=== PATIENT | male | born 1965 | race Caucasian/White ===

== ENCOUNTER 2019-10-16 13:02 | Outpatient (CLI) | payer BC, MEDICARE, SELFPAY ==
--- NOTE | 2019-10-16 13:07 | ECG_ITS ---
Measurements Intervals [place] Rate: 82 P: 52 OR: 175 QRS: 41 QRSD: 88 T: 43 QT: 343 QTc: 401 Interpretive Statements SINUS RHYTHM BASELINE ARTIFACT- I, III, AVR, AVL, AVF NORMAL ECG Electronically Signed On 10-16-2019 13:58:56 DIRECTOR OF FINANCIAL REPORTING by Duglas Cabral D.O.
== END 2019-10-16 13:03 | disposition home or self-care (01) ==
PROVIDERS: PCP Family Medicine; Visit Provider Podiatrist Foot & Ankle Surgery
DX: Z01.810 Encounter for preprocedural cardiovascular examination (principal); E78.00 Pure hypercholesterolemia, unspecified
CPT/HCPCS: 93005

== ENCOUNTER 2021-01-13 11:25 | Outpatient (CLI) | payer MEDICARE, BC, SELFPAY | END 2021-01-13 11:26 | disposition home or self-care (01) | LOC: ANHCOVIDVC 11:25 | PROVIDERS: PCP Family Medicine | DX: Z23 Encounter for immunization (principal) | CPT/HCPCS: 0001A; 91300 ==

== ENCOUNTER 2021-02-03 11:19 | Outpatient (CLI) | payer BC, MEDICARE, SELFPAY | END 2021-02-03 11:20 | disposition home or self-care (01) | LOC: ANHCOVIDVC 11:20 | PROVIDERS: PCP Family Medicine | DX: Z23 Encounter for immunization (principal) | CPT/HCPCS: 0002A; 91300 ==

== ENCOUNTER 2021-04-19 07:04 | Emergency (ER) | payer BC, MEDICARE, SELFPAY ==
[2021-04-19] VITALS (13 sets, daily range): BP systolic 104–151; BP diastolic 39–96; PULSE 86–103; RESP 12–24; TEMP 36.7; O2SAT 97–100
--- NOTE | ~2021-04-19 | XR_ITS ---
EXAMINATION: XR chest 2V DATE: 04/19/2021 07:30 INDICATION: Right-sided chest pain TECHNIQUE: PA and lateral views of the chest are obtained. COMPARISON: None available FINDINGS: Airspace opacities are present in the right upper lobe. There is no pleural effusion or pne umothorax. The cardiomediastinal silhouette is normal. There is mild thoracic spondylosis. IMPRESSION: 1. Right upper lobe airspace opacity which could reflect pneumonia. Recommend followup radiographs in 10-14 days after appropriate therapy to evaluate for improvement/resolution as malignancy could have a similar appearance. Reviewed, dictated and finalized at location A. IMPRESSION: 1. Right upper lobe airspace opacity which could reflect pneumonia. Recommend f ollowup radiographs in 10-14 days after appropriate therapy to evaluate for imp rovement/resolution as malignancy could have a similar appearance.
--- NOTE | 2021-04-19 07:21 | ED.SOB ---
HPI - SOB/Dyspnea General Chief Complaint: Shortness of Breath/Dyspnea Stated Complaint: feels like I collapsed my lung Time Seen by Provider: 04/19/21 07:10 History of Present Illness HPI Narrative: 56 yo male w/ h/o htn, BPD presents to the ED for CP and SOB. He reports that he has had a few days of pain in the right upper chest. Sharp. Worse with breathing. He has also had mild dyspnea with exertion. He reports that he was seen here in the past with similar symptoms and told that he had a RUL collapse. I cannot find any records of this, although there is an outside x-ray report with RUL opacities. No trauma, fever. He is a daily smoker. Related Data Home Medications Medication Instructions Recorded Confirmed buspirone 10 mg PO BID 10/04/19 10/26/19 melatonin 6 mg PO HS 10/04/19 10/26/19 trazodone 50 mg PO HS 10/04/19 10/26/19 venlafaxine 75 mg PO QAM 10/04/19 10/26/19 buprenorphine [Butrans] 1 patch TRANSDERMAL Q7D 10/12/19 10/26/19 quetiapine 400 mg PO HS 10/12/19 10/26/19 Allergies Allergy/AdvReac Type Severity Reaction Status Date / Time PROPOXYPHENE NAPSYLATE Allergy Seizure Uncoded 04/19/21 07:37 STEROIDS AdvReac Irritable, Uncoded 04/19/21 07:37 SEVERE DEPRESSION Review of Systems Review of Systems: All systems reviewed & are unremarkable except as noted in HPI and below Constitutional: Constitutional: Denies chills and Denies fever(s) ENT: Denies dizziness and Denies sore throat Cardiovascular: Cardiovascular: Reports chest pain Respiratory: Respiratory: Reports cough, Reports dyspnea and Denies wheezing Gastrointestinal: Gastrointestinal: Denies abdominal pain, Denies nausea and Denies vomiting Musculoskeletal: Musculoskeletal: Denies back pain Neurologic: Denies confusion, Denies dizziness and Denies weakness PMF Past Medical History Medical History Bipolar disorder Chronic back pain Depression Diabetes Hypercholesterolemia Patulous eustachian tube, bilateral Spinal stenosis Surgical History Surgical History No history of previous surgery Family History Family History Mother Family history of migraine headaches Hypertension Family history of osteoarthritis Family history of cardiovascular disease Father Family history of alcoholism Family history of diabetes mellitus in first degree relative Diabetes mellitus Grandparent Family history of lung cancer Other Family history of malignant neoplasm Family history of mental disorder Social History Social History Smoking status: Heavy tobacco smoker Second hand tobacco smoke exposure: Yes Alcohol intake: never Substance use type: marijuana Gender identity (if verbalized by the patient): Male Exam Const: General: healthy appearing, no acute distress and alert Orientation/consciousness: patient oriented x3 HENMT: Head: normal to inspection Neck: Neck: normal visual inspection and no lymphadenopathy Chest: Chest palpation & inspection: no tenderness Resp: Effort & Inspection: normal respiratory effort Auscultation: clear to auscultation bilaterally, no rales, no rhonchi and no wheezes Cardio: Jugular venous distension: no JVD Rate: regular rate Rhythm: regular rhythm Heart sounds: no murmurs GI: Inspection: non-distended GI Palp: Yes Soft to palpation and No Tenderness to palpation present (GI) Skin: General skin exam: normal color Neuro: General: patient oriented x3 and moves all extremities Speech: normal speech Extrem: General: no edema Psych: Appearance: well kempt Affect: normal affect Course Vital Signs Vital signs: Vital Signs Temperature 36.7 C 04/19/21 07:08 Pulse Rate 103 H 04/19/21 07:08 Respiratory Rate 13 04/19/21 07:08 Blood
--- NOTE | 2021-04-19 07:22 | ECG_ITS ---
Measurements Intervals [place] Rate: 99 P: 49 CA: 141 QRS: 23 QRSD: 94 T: 71 QT: 337 QTc: 434 Interpretive Statements SINUS RHYTHM DELAYED PRECORDIAL R/S TRANSITION BORDERLINE ST-T WAVE ABNORMALITY- INF/LAT LEADS BASELINE ARTIFACT- I, II, III, AVR, AVL, AVF, V3-V6 BORDERLINE ECG Electronically Signed On 04-19-2021 7:28:50 CDT by Duglas Cabral D.O.
[2021-04-19 07:33] LABS: Basophils Percent Auto 0.4 % (0.2-1.2); Eosinophils Absolute Auto 0.1 K/mm3 (0-0.3); Eosinophils Percent Auto 1.3 % (0-4.4); Hematocrit 37.1 % (42.0-52.0); Hemoglobin 12.3 g/dL (14.0-18.0); Immature Granulocyte Absolute 0.05 K/mm3 (0.00-0.031); Immature Granulocyte Percent A 0.5 % (0-0.5); Lymphocytes Absolute Auto 0.61 K/mm3 (0.9-3.2); Lymphocytes Percent Auto 5.7 % (18.3-44.2); Mean Corpuscular HGB Conc 33.2 g/dl (32-36); Mean Corpuscular Volume 93.5 fl (80-100); Mean Platelet Volume 9.9 fl (7.4-10.4); Monocytes Absolute Auto 0.9 K/mm3 (0.1-0.6); Monocytes Percent Auto 8.6 % (2.6-8.5); Neutrophils Absolute Auto 8.9 K/mm3 (1.3-6.7); Neutrophils Percent Auto 83.5 % (45.5-73.1); Platelet Count Result 257 k/mm3 (150-375); Red Blood Count 3.97 M/mm3 (4.6-6.20); Red Cell Distribution Width 13.9 % (11.5-14.5); White Blood Count 10.6 K/mm3 (4.5-10.0)
[2021-04-19 07:42] LABS: Anion Gap 7 mmol/L (8-16); Blood Urea Nitrogen 14 mg/dL (9-20); Calcium 9.2 mg/dL (8.4-10.2); Carbon Dioxide 26 mmol/L (22-30); Chloride 106 mmol/L (98-107); Estimated CRCL calculation 73 ml/min; Estimated Glomerular Filt Rate > 60; Glucose 192 mg/dL (65-110); Potassium 3.4 mmol/L (3.4-5.0); Sodium 139 mmol/L (137-145)
[2021-04-19 07:55] LABS: Troponin I 0.014 ng/mL (0.000-0.034)
[2021-04-19 08:16] LABS: Prothrombin Time 13.2 Seconds (11.1-14.7)
[2021-04-19 08:17] LABS: Partial Thromboplastin Time 36.2 SECONDS (22.3-36.8)
[2021-04-19] MEDS: ALBUTEROL SULFATE NEB 2.5 MG/0.5 ML INH 5 MG INHALATION (10:09)
[2021-04-19] MEDS: AZITHROMYCIN 250 MG TABLET 500 MG PO (10:30)
[2021-04-19] MEDS: AMOXICILLIN/CLAVULANATE K 875-125 MG TAB 1 TABLET PO (10:30)
[2021-04-19 10:40] LABS: Troponin I 0.016 ng/mL (0.000-0.034)
== END 2021-04-19 10:53 | disposition home or self-care (01) ==
PROVIDERS: Emergency Provider Emergency Medicine
DX: J18.9 Pneumonia, unspecified organism (principal); I10 Essential (primary) hypertension; E11.9 Type 2 diabetes mellitus without complications; E78.00 Pure hypercholesterolemia, unspecified; F31.9 Bipolar disorder, unspecified; R94.31 Abnormal electrocardiogram [ECG] [EKG]; F17.200 Nicotine dependence, unspecified, uncomplicated
CPT/HCPCS: 36415; 71046; 80048; 84484; 85025; 85610; 85730; 93005; 94640; 99284; A9270

== ENCOUNTER 2021-05-09 10:03 | Emergency (ER) | payer BC, MEDICARE, SELFPAY ==
--- NOTE | ~2021-05-09 | XR_ITS ---
XR chest 2V 05/09/2021 10:30 Indication: Cough, shortness of breath and chest pain Procedure: 2 view chest Comparison: 04/19/2021 Findings: Progression of right upper lobe pneumonia prior examination. Heart size normal. Left lung c lear. No significant effusion or pneumothorax. Impression: 1: Interval progression of right upper lobe pneumonia. Reviewed, dictated and finalized at location A. Impression: 1: Interval progression of right upper lobe pneumonia.
[2021-05-09 10:14] VITALS: BP 105/60; PULSE 94; RESP 16; TEMP 36.6; O2SAT 99
--- NOTE | 2021-05-09 10:15 | ED.GENADULT ---
HPI - General Adult General Chief complaint: Upper Respiratory Infection Stated complaint: cough/chest hurts Time Seen by Provider: 05/09/21 10:15 Source: patient and RN notes reviewed Mode of arrival: ambulatory Limitations: no limitations History of Present Illness HPI narrative: 56-year-old male presents with complaints of intermittent shortness of breath, cough, and right upper chest discomfort for the past 22 days. Arnaldo reports increasing cough, intermittent chills, and RT upper chest discomfort. Started Azithromycin and Augmentin 04/19/21 without relief, repeated CXR without further treatment per Arnaldo. History of smoking 2 PPD for years. Constant dry cough/intermittent productive cough (green-brown phlegm). Rhinorrhea and nasal congestion. ?Denies sore throat. ?No high fevers, drooling, neck or throat swelling. ?No chest pain or wheezing. ?Denies nausea, vomiting, and abdominal pain. ?Tolerating liquids well. ?Remains active. The patient reports he has not been diagnosed with COVID-19. The patient reports he received 2 [employer] COVID-19 vaccines. The patient reports he is not waiting for the results of a COVID-19 lab test. The patient reports he does not have weakness, fatigue, or myalgia. The patient reports he does not have any loss of taste or smell and diarrhea. Denies recent traveling. Denies concerns for COVID-19 or exposures. At this time, the patient is not suspected of having COVID-19. Some parts of this dictation were generated by voice recognition software and may contain typographical and/or grammatical inaccuracies. Related Data Home Medications Medication Instructions Recorded Confirmed buspirone 10 mg PO TID 10/04/19 05/10/21 melatonin 20 mg PO 10/04/19 05/10/21 trazodone 50 mg PO 10/04/19 05/10/21 venlafaxine 150 mg PO QAM 10/04/19 05/10/21 quetiapine 400 mg PO 10/12/19 05/10/21 diazepam 10 mg PO Q12H PRN 05/10/21 05/10/21 fenofibrate 145 mg PO DAILY 05/10/21 05/10/21 gabapentin 300 mg PO TID 05/10/21 05/10/21 hydrocodone-acetaminophen 1 tablet PO Q8H PRN 05/10/21 05/10/21 naproxen 500 mg PO BID PRN 05/10/21 05/10/21 Allergies Allergy/AdvReac Type Severity Reaction Status Date / Time PROPOXYPHENE NAPSYLATE Allergy Seizure Uncoded 05/10/21 14:35 STEROIDS AdvReac Irritable, Uncoded 05/10/21 14:35 SEVERE DEPRESSION Review of Systems Review of Systems: CONSTITUTIONAL: Denies fever, sweats, fatigue. Complaints of intermittent chills. EYES: Denies visual changes, redness, discharge. ENT: Complains of rhinorrhea, congestion. Denies sore throat, otalgia. CARDIOVASCULAR: Denies chest pain, palpitations, edema. Complains of right upper chest wall pain. RESPIRATORY: Denies wheezing. Complains of constant dry cough, intermittent productive cough, dyspnea. GASTROINTESTINAL: Denies abdominal pain, nausea, vomiting, diarrhea. GENITOURINARY: Denies dysuria, hematuria, abnormal discharge. SKIN: Denies rash or itching. MUSCULOSKELETAL: Denies acute back pain, joint pain, or myalgia. NEUROLOGIC: Denies numbness or focal weakness. PSYCHIATRIC: Denies anxiety or depression. All other systems reviewed are negative, except as documented in HPI and below. [facility] Past Medical History Medical History Anxiety Bipolar disorder Chronic back pain Depression Hypercholesterolemia Kidney stones Posttraumatic stress disorder Spinal stenosis Tobacco dependence Surgical History Surgical History History of myringotomy History of toe surgery Family History Family History Mother Family history of migraine headaches Hypertension Family history of osteoarthritis Family history of cardiovascular disease Father Family history of alcoholism Family history of diabetes mellitus in first degree relative Diabetes mellitus
== END 2021-05-09 10:55 | disposition home or self-care (01) ==
PROVIDERS: Emergency Provider Nurse Practitioner Family
DX: J18.9 Pneumonia, unspecified organism (principal); F17.210 Nicotine dependence, cigarettes, uncomplicated; F41.9 Anxiety disorder, unspecified; F31.9 Bipolar disorder, unspecified; E78.00 Pure hypercholesterolemia, unspecified; M48.00 Spinal stenosis, site unspecified
CPT/HCPCS: 71046; 99213; G0463

== ENCOUNTER 2021-05-10 08:28 | Inpatient (IN) | payer BC, MEDICARE, SELFPAY ==
[2021-05-10] VITALS (13 sets, daily range): BP systolic 60–126; BP diastolic 51–86; PULSE 79–110; RESP 16–20; TEMP 36.1–37.6; O2SAT 96–100; BMI 28.9
--- NOTE | ~2021-05-10 | XR_ITS ---
XR chest 2V 05/10/2021 09:01 Indication: Cough. Pneumonia. Procedure: 2 view chest Comparison: Comparison to multiple prior studies sequentially, with oldest reviewed study dated 04/19. Findings: Interval progression of right upper lobe pneumonia. Heart size normal. No pleural effusion or pneumothorax. No acute osseous abnormality. Impression: 1: Progression of right upper lobe pneumonia. Reviewed, dictated and finalized at location A. Impression: 1: Progression of right upper lobe pneumonia.
--- NOTE | ~2021-05-10 | XR_ITS ---
EXAMINATION: XR barium swallow modified DATE: 05/11/2021 08:54 INDICATION: Dysphagia. TECHNIQUE: The patient was given barium-containing material of multiple consistencies to swallow by andre jimenez speech pathologist while I performed fluoroscopy. Dose-area product was 0.91 Gy-cm2. 1.2 minutes fluoroscopy time FINDINGS: Oral Stage: Normal Pharyngeal Phase: Normal Cervical/Esophageal Stage: Normal IMPRESSION: Modified esophagram findings as above. Please [facility]. Reviewed, dictated and finalized at Location A. Reviewed, dictated and finalized at location A. IMPRESSION: Modified esophagram findings as above. Please refer to the speech t herapy report for specific recommendations.
--- NOTE | ~2021-05-10 | CT_ITS ---
EXAMINATION: CT diagnostic chest wo con DATE: 05/11/2021 09:00 INDICATION: Unresolving pneumonia TECHNIQUE: Computed tomography (CT) of the chest was performed without intravenous contrast. The dose -length product (DLP) was 393.39 mGy-cm. Automated exposure control and iterative reconstruction tech nique were employed. COMPARISON: None FINDINGS: There is a masslike opacity of the right upper lobe with areas of cavitation which crosses the major fissure to involve the superior segment of the right lower lobe. Peripheral airspace opacit ies are present throughout the right upper lobe. The right middle lobe and remainder of the right low er lobe are clear. There are subtle groundglass opacities of the left upper lobe. There is mild media stinal lymphadenopathy. The heart size is normal. There is no pleural effusion or pneumothorax. Contr ast from modified barium swallow partially opacifies the stomach and duodenum. There is moderate thor acic spondylosis. IMPRESSION: 1. Findings consistent with cavitary pneumonia of the right upper lobe also involving the superior se gment of the right lower lobe. Patchy groundglass opacities of the left upper lobe are also likely in fectious. Reviewed, dictated and finalized at location B. IMPRESSION: 1. Findings consistent with cavitary pneumonia of the right upper lobe also inv olving the superior segment of the right lower lobe. Patchy groundglass opaciti es of the left upper lobe are also likely infectious.
[2021-05-10] MEDS: SODIUM CHLORIDE 0.9% IV 1,000 ML 999 ML IV CONT ×2 (09:03→09:40)
[2021-05-10 09:15] LABS: Basophils Percent Auto 0.3 % (0.2-1.2); Eosinophils Absolute Auto 0.2 K/mm3 (0-0.3); Eosinophils Percent Auto 1.3 % (0-4.4); Hematocrit 31.3 % (42.0-52.0); Immature Granulocyte Absolute 0.09 K/mm3 (0.00-0.031); Immature Granulocyte Percent A 0.6 % (0-0.5); Lymphocytes Absolute Auto 0.68 K/mm3 (0.9-3.2); Lymphocytes Percent Auto 4.3 % (18.3-44.2); Mean Corpuscular HGB Conc 31.9 g/dl (32-36); Mean Corpuscular Hemoglobin 29.9 pg (26-34); Mean Corpuscular Volume 93.4 fl (80-100); Mean Platelet Volume 10.3 fl (7.4-10.4); Monocytes Absolute Auto 1.2 K/mm3 (0.1-0.6); Monocytes Percent Auto 7.4 % (2.6-8.5); Neutrophils Absolute Auto 13.6 K/mm3 (1.3-6.7); Neutrophils Percent Auto 86.1 % (45.5-73.1); Platelet Count Result 326 k/mm3 (150-375); Red Blood Count 3.35 M/mm3 (4.6-6.20); White Blood Count 15.8 K/mm3 (4.5-10.0)
[2021-05-10 09:17] LABS: Ammonia < 9 umol/L (9-30)
[2021-05-10 09:18] LABS: Anion Gap 7 mmol/L (8-16); Blood Urea Nitrogen 19 mg/dL (9-20); Carbon Dioxide 28 mmol/L (22-30); Chloride 99 mmol/L (98-107); Estimated CRCL calculation 61 ml/min; Estimated Glomerular Filt Rate > 60; Glucose 195 mg/dL (65-110); Potassium 3.2 mmol/L (3.4-5.0); Sodium 134 mmol/L (137-145)
[2021-05-10 09:23] LABS: Alanine Aminotransferase 18 U/L (4-50); Albumin Level 3.5 g/dL (3.5-5.1); Alkaline Phosphatase 155 U/L (38-126); Aspartate Amino Transferase 18 U/L (17-59); Bilirubin,Total 0.6 mg/dL (0.2-1.3)
[2021-05-10 09:28] LABS: Add Urine Microscopic? YES; Appearance Urine Clear (Clear); Bacteria Urine Trace /hpf; Bilirubin Urine 1+ (Negative); Blood Urine Negative (Negative); Calcium Oxalate Crystals Urine Present /hpf; Color Urine Amber (Yellow); Glucose Urine UA Negative (Negative); Ketones Urine Negative (Negative); Leukocyte Esterase Ur Negative LEU/UL (Negative); Mucus Urine Heavy /lpf; Nitrate Urine Negative (Negative); Protein Urine 1+ mg/dL (Negative); Specific Grav Ur 1.027 (1.001-1.035); Squamous Epithelial Cell Urine Rare /hpf (Few)
[2021-05-10 10:04] LABS: Lactic Acid Reflex 0.9 mmol/L (0.7-2.1)
--- NOTE | 2021-05-10 11:27 | ED.GENADULT ---
HPI - General Adult General Chief complaint: Weakness Stated complaint: slight confusion, numbness hands Time Seen by Provider: 05/10/21 08:37 History of Present Illness HPI narrative: Patient is a 56-year-old male who presents ER with increased weakness. Reports over the last few weeks he is been increasingly weak and fatigued. He has persistent shortness of breath. Recently diagnosed last month with pneumonia and was treated outpatient. He is unsure that was fully treated. He reports he has had about a 12 pound weight loss. Patient does have history of heavy smoking. Patient also reports occasional tingling in his hands. Patient reports he feels like he is lightheaded or confused but is oriented x3 and has brisk recall. Denies sinus congestion or sore throat or productive cough. Patient denies any foreign travel or incarceration that put him at risk for TB. No hemoptysis. Related Data Home Medications Medication Instructions Recorded Confirmed buspirone 10 mg PO TID 10/04/19 05/10/21 melatonin 20 mg PO HS 10/04/19 05/10/21 trazodone 50 mg PO HS 10/04/19 05/10/21 venlafaxine 150 mg PO QAM 10/04/19 05/10/21 quetiapine 400 mg PO HS 10/12/19 05/10/21 diazepam 10 mg PO Q12H PRN 05/10/21 05/10/21 fenofibrate 145 mg PO DAILY 05/10/21 05/10/21 gabapentin 300 mg PO TID 05/10/21 05/10/21 hydrocodone-acetaminophen 1 tablet PO Q8H PRN 05/10/21 05/10/21 naproxen 500 mg PO BID PRN 05/10/21 05/10/21 Allergies Allergy/AdvReac Type Severity Reaction Status Date / Time PROPOXYPHENE NAPSYLATE Allergy Seizure Uncoded 05/10/21 14:35 STEROIDS AdvReac Irritable, Uncoded 05/10/21 14:35 SEVERE DEPRESSION Review of Systems Review of Systems: All systems reviewed & are unremarkable except as noted in HPI and below Constitutional: Constitutional: Denies chills, Reports fatigue, Denies fever(s) and Reports weakness ENT: Denies nasal congestion and Denies sore throat Cardiovascular: Cardiovascular: Denies chest pain, Denies rapid heart rate and Denies radiating jaw, neck or arm pain Respiratory: Respiratory: Denies cough, Reports dyspnea and Denies wheezing Gastrointestinal: Gastrointestinal: Denies abdominal pain, Denies nausea and Denies vomiting Neurologic: Denies headache(s) and Denies focal weakness Comments: Tingling in fingers PMFSH Past Medical History Medical History Bipolar disorder Chronic back pain Depression Diabetes Hypercholesterolemia Patulous eustachian tube, bilateral Spinal stenosis Surgical History Surgical History No history of previous surgery Family History Family History Mother Family history of migraine headaches Hypertension Family history of osteoarthritis Family history of cardiovascular disease Father Family history of alcoholism Family history of diabetes mellitus in first degree relative Diabetes mellitus Grandparent Family history of lung cancer Other Family history of malignant neoplasm Family history of mental disorder Social History Social History (Updated 05/09/21 @ 10:25 by KRISTI Long) Smoking packs per day: 2 Smoking cigarettes per day: 40.0 Years smoked: 36 Smoking pack-years: 72.00 Smoking status: Current every day smoker Tobacco type: cigarettes Second hand tobacco smoke exposure: Yes Alcohol intake: never Alcohol use details: rarely Substance use: current Substance use type: marijuana Other substance usage details: uses daily Last use: 05/08/2021 Additional occupation/education comments: disable Gender identity (if verbalized by the patient): Male Spiritual care concerns: No Exam Narrative: GENERAL: Fatigued-appearing, well-nourished, and in no acute distress. HEAD: Normocephalic, atraumatic. EYES: PERRL and EOMI. CHEST:
--- NOTE | 2021-05-10 14:23 | ADMGEN ---
This patient, Arnaldo Morton, was admitted to Medical Room 343-01. Patient/family oriented to hospital policies and general routines including ID bracelet, bed and alarms, visiting hours, pain management, procedures, bathroom and other care routines, personal items, smoking policy, room service/diet, and visiting hours. Information on how to activate the Rapid Response Team has been discussed. Patient/Family are encouraged to report perceived risks to care and to ask questions if they do not understand what they are told or what they should do.
[2021-05-10] MEDS: HYDROcodone/acetaminophen (*CRX) 5-325 MG TABLET 1 TAB PO (20:32)
--- NOTE | 2021-05-10 22:00 | PM.IMHP ---
H&P: HPI History of Present Illness Date/Time: 05/10/21 22:00 Chief Complaint: Weakness and lightheadedness. Narrative: This is a 56-year-old male smoker who presented to the emergency department earlier this morning with complaints of weakness and lightheadedness. Last month he was diagnosed with right upper lobe pneumonia for which he was given azithromycin and another prescription for Augmentin more recently although it does not sound as though he completed the full course of antibiotics prescribed to him. He has continued to have symptoms including cough which is rarely productive of yellow-green phlegm, poor appetite, and generalized malaise. Due to ongoing symptoms he was seen at urgent care yesterday where a chest x-ray showed worsening right upper lobe pneumonia for which he was prescribed Levaquin however he did not go pick that up yesterday or this morning. In the emergency department today his blood pressures were a bit soft and with further questioning it sounds like his appetite has not been that great and he feels a bit dehydrated. He has had perhaps mild nausea but no vomiting. He also endorses occasional dysphagia over the last couple of weeks, mainly with solid foods though he denies concerns for aspiration. Since receiving IV fluids he feels quite a bit better. He completed the [employer] COVID-19 vaccination series several months ago and denies exposure and sick contacts. He does not think he has had fevers but he does have sweats quite frequently. No headaches, chest pain, pleuritic pain, vomiting, or diarrhea. He has no history of malignancy but does report a 12 to 14 lb weight loss in the last couple of weeks. Review of Systems Review of Systems: Twelve systems were reviewed with pertinent positives and negatives as per HPI. Except as documented, all other systems were reviewed and are negative. [facility] Past Medical History Medical History (Updated 05/11/21 @ 00:47 by Janell Araya PA-C) Anxiety Bipolar disorder Chronic back pain Depression Hypercholesterolemia Kidney stones Posttraumatic stress disorder Spinal stenosis Tobacco dependence Surgical History Surgical History (Updated 05/11/21 @ 00:44 by Janell Araya PA-C) History of myringotomy History of toe surgery Family History Family History Mother Family history of migraine headaches Hypertension Family history of osteoarthritis Family history of cardiovascular disease Father Family history of alcoholism Family history of diabetes mellitus in first degree relative Diabetes mellitus Grandparent Family history of lung cancer Other Family history of malignant neoplasm Family history of mental disorder Social History Social History (Updated 05/11/21 @ 00:45 by Janell Araya PA-C) Social History: Surrogate decision maker: Roxanne Morton, spouse. Code status: Full code. Smoking packs per day: 2 Smoking cigarettes per day: 40.0 Years smoked: 36 Smoking pack-years: 72.00 Smoking status: Current every day smoker Tobacco type: cigarettes Second hand tobacco smoke exposure: Yes Alcohol intake: never Alcohol use details: Rare alcohol use. Substance use: current Substance use type: marijuana Other substance usage details: uses daily Last use: 05/08/2021 Additional occupation/education comments: Disabled. Meds Home Medications and Allergies Home Medications Medication Instructions Recorded Confirmed Type buspirone 10 mg PO TID 10/04/19 05/10/21 History melatonin 20 mg PO HS 10/04/19 05/10/21 History trazodone 50 mg PO HS 10/04/19 05/10/21 History venlafaxine 150 mg PO QAM 10/04/19 05/10/21 History quetiapine 400 mg PO HS 10/12/19 05/10/21 History tizanidine 4 mg capsule See Rx Instructions .ROUTE 05/26/20 05/10/21 Rx .COMPLEX #270 cap albuterol sulfate 2 puff INHALATION QID PRN #8.5 g 04/19/21 05/10/21 Rx benzonatate 100 mg
[2021-05-11] VITALS (8 sets, daily range): BP systolic 108–142; BP diastolic 58–79; PULSE 86–108; RESP 16–18; TEMP 36.2–36.6; O2SAT 97–100
[2021-05-11 00:43] LABS: Anion Gap 8 mmol/L (8-16); Blood Urea Nitrogen 13 mg/dL (9-20); Carbon Dioxide 24 mmol/L (22-30); Chloride 109 mmol/L (98-107); Estimated CRCL calculation 73 ml/min; Estimated Glomerular Filt Rate > 60; Glucose 113 mg/dL (65-110); Potassium 4.2 mmol/L (3.4-5.0); Sodium 141 mmol/L (137-145)
[2021-05-11 00:45] LABS: Hemoglobin A1C 5.9 % (<5.7)
[2021-05-11 01:13] LABS: Iron 12 ug/dL (49-181)
[2021-05-11 01:20] LABS: CRP 32.1 mg/dL (<1.0)
[2021-05-11 01:22] LABS: Percent Iron Saturation 7 % (20-50)
[2021-05-11 01:31] LABS: Procalcitonin 0.3 ng/mL
[2021-05-11 01:45] LABS: Thyroid Stimulating Hormone Reflex 0.172 uIU/mL (0.465-4.68)
[2021-05-11 01:52] LABS: Folic Acid 2.4 ng/mL (2.76->20)
[2021-05-11 04:44] LABS: Free T4 Free Thyroxine Reflex 0.96 ng/dL (0.78-2.19)
[2021-05-11 05:25] LABS: Total Triiodothyronine (T3) 0.88 NG/ML (0.97-1.69)
[2021-05-11] MEDS: HYDROcodone/acetaminophen (*CRX) 10-325 MG TABLET 1 TAB PO ×2 (05:29→17:42)
[2021-05-11 06:48] LABS: Hematocrit 31.9 % (42.0-52.0); Mean Corpuscular HGB Conc 31.3 g/dl (32-36); Mean Corpuscular Hemoglobin 29.2 pg (26-34); Mean Corpuscular Volume 93.3 fl (80-100); Mean Platelet Volume 10.1 fl (7.4-10.4); Platelet Count Result 362 k/mm3 (150-375); Red Blood Count 3.42 M/mm3 (4.6-6.20); Red Cell Distribution Width 14.3 % (11.5-14.5); White Blood Count 14.5 K/mm3 (4.5-10.0)
[2021-05-11 06:58] LABS: Anion Gap 8 mmol/L (8-16); Blood Urea Nitrogen 12 mg/dL (9-20); Calcium 8.5 mg/dL (8.4-10.2); Carbon Dioxide 23 mmol/L (22-30); Chloride 103 mmol/L (98-107); Estimated CRCL calculation 90 ml/min; Estimated Glomerular Filt Rate > 60; Glucose 112 mg/dL (65-110); Potassium 3.7 mmol/L (3.4-5.0); Sodium 134 mmol/L (137-145)
[2021-05-11] MEDS: busPIRone HCL 5 MG TABLET 10 MG PO ×3 (09:21→19:13)
[2021-05-11] MEDS: TIZANIDINE HCL 4 MG TABLET BY MOUTH ×2 (09:21→12:59)
[2021-05-11] MEDS: GABAPENTIN 300 MG CAPSULE PO ×3 (09:21→17:42)
[2021-05-11] MEDS: FENOFIBRATE NANOCRYSTALLIZED 145 MG TABLET PO (09:21)
[2021-05-11] MEDS: ENOXAPARIN 40 MG/0.4 ML SYRINGE SUB-Q (09:21)
[2021-05-11] MEDS: BENZONATATE 100 MG CAPSULE PO ×3 (09:21→19:13)
[2021-05-11] MEDS: VENLAFAXINE HCL 75 MG TABLET 150 MG PO (09:21)
[2021-05-11] MEDS: diazePAM (*CRX) 5 MG TABLET 10 MG PO (12:58)
--- NOTE | 2021-05-11 16:26 | PM.IMPN ---
Progress Note: A&P Assessment and Plan (1) Right upper lobe pneumonia: Code(s): J18.9 - Pneumonia, unspecified organism Status: Acute Assessment and Plan: 05/11/21 16:26 Despite 2 rounds of antibiotics, although unsure is not been completely compliant with those, he continues to have right upper lobe pneumonia which appears worse on imaging today. Given his smoking history I think it would be prudent to obtain a chest CT to rule out postobstructive pneumonia. Given dysphagia last couple of weeks I suppose aspiration is a concern although the patient denies such. Swallow study ordered for a.m. Continue azithromycin and ceftriaxone pending sputum culture. Check urinary antigens. Cornet and Mucinex ordered to help mobilize secretions. 05/11 patient states currently better compared to when he arrived CT scan of the chest showed Findings consistent with cavitary pneumonia of the right upper lobe also involving the superior segment of the right lower lobe. Patchy groundglass opacities of the left upper lobe are also likely infectious. patient is being treated with ceftriaxone and azithromycin, will switch over to Levaquin and vancomycin to provide broad coverage, will continue to monitor (2) Hypotension: Code(s): I95.9 - Hypotension, unspecified Status: Acute Assessment and Plan: will continue home regimen and monitor (3) Dehydration: Code(s): E86.0 - Dehydration Status: Acute Assessment and Plan: patient being gently hydrated (4) Hyperglycemia: Code(s): R73.9 - Hyperglycemia, unspecified Status: Acute (5) Hypokalemia: Code(s): E87.6 - Hypokalemia Status: Acute Assessment and Plan: will monitor and supplement (6) Tobacco dependence: Code(s): F17.200 - Nicotine dependence, unspecified, uncomplicated Status: Acute Assessment and Plan: discussed with the patient to stop smoking, patient is not ready to stop smoking at present time Subjective Date/time seen: 05/11/21 16:26 Despite 2 rounds of antibiotics, although unsure is not been completely compliant with those, he continues to have right upper lobe pneumonia which appears worse on imaging today. Given his smoking history I think it would be prudent to obtain a chest CT to rule out postobstructive pneumonia. Given dysphagia last couple of weeks I suppose aspiration is a concern although the patient denies such. Swallow study ordered for a.m. Continue azithromycin and ceftriaxone pending sputum culture. Check urinary antigens. Cornet and Mucinex ordered to help mobilize secretions. 05/11 patient states currently better compared to when he arrived CT scan of the chest showed Findings consistent with cavitary pneumonia of the right upper lobe also involving the superior segment of the right lower lobe. Patchy groundglass opacities of the left upper lobe are also likely infectious. patient is being treated with ceftriaxone and azithromycin, will switch over to Levaquin and vancomycin to provide broad coverage, will continue to monitor Review of Systems Review of Systems: All systems reviewed & are unremarkable except as noted in HPI and below Exam Narrative: Patient is comfortable, NAD HEENT: eyes are clear and none icteric LUNGS: bilateral fair air entry with rhonchi and wheezing HEART: RR S1S2 ABD: not distended Lower extremities: no edema SKIN: nonjaundiced Neuro: grossly intact normal speech. Objective Data Vital Signs Vital Signs: Vital Signs - 24 hr 05/10/21 19:55 05/11/21 05:25 05/11/21 14:00 Temperature 99.7 F H 97.5 F L 97.9 F Pulse Rate 109 H 98 86 Respiratory Rate 18 16 18 Blood Pressure 126/60 142/76 H 108/58 L Pulse Oximetry 96 97 100 Intake/Output Intake/Output: Intake & Output 05/08/21 05/09/21 05/10/21 05/11/21 23:59 23:59 23:59 23:59 Intake Total 2540 1330 Output Total 300 Balance 2540 1030 Meds/Results Medications
[2021-05-11] MEDS: ALBUTEROL SULFATE (*SP) AEROSOL 1 PUFF 2 PUFF INHALATION (19:52)
[2021-05-11] MEDS: MELATONIN 5 MG TABLET 20 MG PO (20:49)
[2021-05-11] MEDS: traZODone HCL 50 MG TABLET PO (20:50)
[2021-05-11] MEDS: QUEtiapine FUMARATE 100 MG TABLET 400 MG PO (20:50)
[2021-05-12] VITALS (7 sets, daily range): BP systolic 98–130; BP diastolic 60–82; PULSE 90–100; RESP 16–20; TEMP 36.3–36.4; O2SAT 96–98
--- NOTE | 2021-05-12 08:01 | PM.IMPN ---
Progress Note: A&P Assessment and Plan (1) Right upper lobe pneumonia: Code(s): J18.9 - Pneumonia, unspecified organism Status: Acute Assessment and Plan: 05/11/21 16:26 Despite 2 rounds of antibiotics, although unsure is not been completely compliant with those, he continues to have right upper lobe pneumonia which appears worse on imaging today. Given his smoking history I think it would be prudent to obtain a chest CT to rule out postobstructive pneumonia. Given dysphagia last couple of weeks I suppose aspiration is a concern although the patient denies such. Swallow study ordered for a.m. Continue azithromycin and ceftriaxone pending sputum culture. Check urinary antigens. Cornet and Mucinex ordered to help mobilize secretions. 05/11 patient states currently better compared to when he arrived CT scan of the chest showed Findings consistent with cavitary pneumonia of the right upper lobe also involving the superior segment of the right lower lobe. Patchy groundglass opacities of the left upper lobe are also likely infectious. patient is being treated with ceftriaxone and azithromycin, will switch over to Levaquin and vancomycin to provide broad coverage, will continue to monitor 05/12 right upper lobe cavitary pneumonia likely infectious however has 72 pack-year smoking history. History exposure to tuberculosis. History of lung collapse 2 years back on right upper lobe. Mycoplasma/Legionella/pneumococcal testing pending. On vancomycin ceftriaxone and azithromycin. Not covering Pseudomonas however will await since he is feeling better. Will get MRSA screen. AFB culture and fungal culture. Will get QuantiFERON. Sputum for cytology. Sputum culture is pending. Benefit from bronchoscopy evaluation. Will consult Pulmonary. May need Infectious Disease (2) Hypotension: Code(s): I95.9 - Hypotension, unspecified Status: Acute Assessment and Plan: will continue home regimen and monitor (3) Dehydration: Code(s): E86.0 - Dehydration Status: Acute Assessment and Plan: patient being gently hydrated (4) Hyperglycemia: Code(s): R73.9 - Hyperglycemia, unspecified Status: Acute (5) Hypokalemia: Code(s): E87.6 - Hypokalemia Status: Acute Assessment and Plan: will monitor and supplement (6) Tobacco dependence: Code(s): F17.200 - Nicotine dependence, unspecified, uncomplicated Status: Acute Assessment and Plan: discussed with the patient to stop smoking, patient is not ready to stop smoking at present time Subjective Date/time seen: 05/12/21 08:01 Interval history: Feeling a whole lot better. Cough is persistent. No hemoptysis. History of exposure to TB in the remote past. History of right upper lobe collapse lung 2 years back was admitted at [facility]. Reports feeling hot and cold with chills at times. Appetite is low. Has lost weight since past few weeks about 8-10 lb since this course. Review of Systems Review of Systems: All systems reviewed & are unremarkable except as noted in HPI and below Exam Narrative: Patient is comfortable, NAD HEENT: eyes are clear and none icteric LUNGS: bilateral fair air entry, no added sound heard HEART: RR S1S2 ABD: not distended Lower extremities: no edema no cyanosis or clubbing SKIN: nonjaundiced no rash Neuro: grossly intact normal speech. Objective Data Vital Signs Vital Signs: Vital Signs - 24 hr 05/11/21 08:02 05/11/21 08:04 05/11/21 14:00 Temperature 97.9 F Pulse Rate 106 H 108 H 86 Respiratory Rate 18 Blood Pressure 139/66 126/72 108/58 L Pulse Oximetry 100 05/11/21 20:07 05/11/21 20:10 05/11/21 20:12 Temperature 97.2 F L Pulse Rate 92 Respiratory Rate 18 Blood Pressure 116/72 123/79 112/68 Pulse Oximetry 97 05/12/21 05:28 Temperature 97.6 F Pulse Rate 100 Respiratory Rate 20 Blood Pressure 122/73 Pulse Oximetry 96
[2021-05-12] MEDS: ENOXAPARIN 40 MG/0.4 ML SYRINGE SUB-Q (10:12)
[2021-05-12] MEDS: GABAPENTIN 300 MG CAPSULE PO ×3 (10:15→17:00)
[2021-05-12] MEDS: BENZONATATE 100 MG CAPSULE PO ×3 (10:15→17:00)
[2021-05-12] MEDS: FENOFIBRATE NANOCRYSTALLIZED 145 MG TABLET PO (10:15)
[2021-05-12] MEDS: busPIRone HCL 5 MG TABLET 10 MG PO ×3 (10:15→17:00)
[2021-05-12] MEDS: VENLAFAXINE HCL 75 MG TABLET 150 MG PO (10:15)
[2021-05-12] MEDS: diazePAM (*CRX) 5 MG TABLET 10 MG PO (16:23)
--- NOTE | 2021-05-12 20:14 | PM.CNPUL ---
Assessment and Plan Assessment and plan (1) Right upper lobe pneumonia: Onset Date: ~04/2021 Code(s): J18.9 - Pneumonia, unspecified organism Status: Acute Assessment and Plan: He has a non resolving infiltrate initially noted April 19, progressive despite outpatient antibiotics, azithromycin, Augmentin. He continues to have symptoms with intermittent fever, chills, purulent sputum, fatigue and poor appetite with anemia; Ceftriaxone was stopped, and he is now on Vancomycin and doxycycline. Vanco provides coverage for Gram (+) anaerobes but not Gram negative anaerobes, may benefit from anaerobic coverage. He has urine antigens pending for pneumococcus, Legionella, Mycoplasma as well as serum testing for QuantiFERON Gold. If he does not improve, bronchoscopy is an option. He does not appear to have a mass obstructing his airway, so probably not a post-obstructive pneumonia. He had a MBS to r/o aspiration; results are normal. Will add Cornet valve to help get sufficient sputum for a Gram stain; probably will not grow anything with antibiotics. May have COPD. Testing after discharge. Agree with bronchodilator and will add additional therapy prior to discharge. (2) Tobacco dependence: Code(s): F17.200 - Nicotine dependence, unspecified, uncomplicated Status: Acute Assessment and Plan: Heavy smoker, tobacco and marijuana. Did not talk about tobacco cessation at this time, will need support to stay off tobacco. He is not going to stop marijuana which he uses for chronic pain. I told him that edible marijuana is preferable to smoking or vaping. Inhaling the substances is worse for his lung health. History of Present Illness History of Present Illness Consult date: 05/12/21 Requesting physician: Clive Jeter MD Reason for consult: pneumonia Chief complaint: pneumonia Narrative: NEW: Arnaldo Morton is a 56 year old man with right upper lobe pneumonia diagnosed April 19 with foul tasting sputum, cough with intermittent fevers and chills. He said that it felt the same as it did when he had pneumonia 1.5 to 2 years ago, treated as an out-patient. He presented to an emergency department and was treated with azithromycin and Augmentin. His symptoms improved but did not completely resolve. He continues to have a cough with scant amounts of yellow green sputum, fatigue, intermittent fever alternating with chills, and decreased appetite. He was admitted here on May 10 with persistent symptoms. He was at an urgent care on May 09 with worsening right upper lobe pneumonia. He has poor dentition, multiple missing teeth upper and lower, with mild difficulty swallowing. He has not had hemoptysis. He has chest pain in the right anterior chest with coughing, says that it feels like an alien is coming out of his chest. He had borderline low blood pressure on presentation May 10, sodium ws ow 14, WBC elevated 15.8 with a left shift, tachycardic heart rate 109, improved with IV fluids, He had [employer] COVID vaccine series a few months ago, has never had a Pneumovax. His last flu vaccination was a couple of years ago. He has not had leg swelling. He has chronic sinus problems. He does not use any regular medication for his sinus congestion. He smokes tobacco daily 2 ppd, and also vapes, smokes and eats marijuana for chronic pain. He Had a back injury in 2003 and became disabled. 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 He recently was started on an inhaler, albuterol by his primary care, Dr. Artem Dudley in [place]. Review of Systems Review of Systems: All systems reviewed & are unremarkable except as noted in HPI and below (HPI) Constitutional: Constitutional: Reports chills ENT: Reports nasal congestion Cardiovascular: Cardiovascular: D
[2021-05-12] MEDS: QUEtiapine FUMARATE 100 MG TABLET 400 MG PO (21:19)
[2021-05-12] MEDS: traZODone HCL 50 MG TABLET PO (21:20)
[2021-05-12] MEDS: MELATONIN 5 MG TABLET 20 MG PO (21:20)
[2021-05-13] VITALS (9 sets, daily range): BP systolic 98–123; BP diastolic 57–77; PULSE 82–94; RESP 18; TEMP 36.1–37.1; O2SAT 94–98
[2021-05-13 06:02] LABS: Hematocrit 30.3 % (42.0-52.0); Hemoglobin 10.1 g/dL (14.0-18.0); Mean Corpuscular HGB Conc 33.3 g/dl (32-36); Mean Corpuscular Hemoglobin 29.9 pg (26-34); Mean Corpuscular Volume 89.6 fl (80-100); Mean Platelet Volume 9.9 fl (7.4-10.4); Platelet Count Result 349 k/mm3 (150-375); Red Blood Count 3.38 M/mm3 (4.6-6.20); White Blood Count 9.8 K/mm3 (4.5-10.0)
[2021-05-13 06:13] LABS: Anion Gap 9 mmol/L (8-16); Blood Urea Nitrogen 12 mg/dL (9-20); Carbon Dioxide 25 mmol/L (22-30); Chloride 103 mmol/L (98-107); Estimated CRCL calculation 80 ml/min; Estimated Glomerular Filt Rate > 60; Glucose 116 mg/dL (65-110); Potassium 3.5 mmol/L (3.4-5.0); Sodium 137 mmol/L (137-145)
[2021-05-13] MEDS: HYDROcodone/acetaminophen (*CRX) 10-325 MG TABLET 1 TAB PO ×2 (06:25→15:33)
[2021-05-13 07:46] LABS: Vancomycin Trough 8.6 ug/mL (10.0-20.0)
--- NOTE | 2021-05-13 08:25 | PM.IMPN ---
Progress Note: A&P Assessment and Plan (1) Right upper lobe pneumonia: Onset Date: ~04/2021 Code(s): J18.9 - Pneumonia, unspecified organism Status: Acute Assessment and Plan: 05/11/21 16:26 Despite 2 rounds of antibiotics, although unsure is not been completely compliant with those, he continues to have right upper lobe pneumonia which appears worse on imaging today. Given his smoking history I think it would be prudent to obtain a chest CT to rule out postobstructive pneumonia. Given dysphagia last couple of weeks I suppose aspiration is a concern although the patient denies such. Swallow study ordered for a.m. Continue azithromycin and ceftriaxone pending sputum culture. Check urinary antigens. Cornet and Mucinex ordered to help mobilize secretions. 05/11 patient states currently better compared to when he arrived CT scan of the chest showed Findings consistent with cavitary pneumonia of the right upper lobe also involving the superior segment of the right lower lobe. Patchy groundglass opacities of the left upper lobe are also likely infectious. patient is being treated with ceftriaxone and azithromycin, will switch over to Levaquin and vancomycin to provide broad coverage, will continue to monitor 05/12 right upper lobe cavitary pneumonia likely infectious however has 72 pack-year smoking history. History exposure to tuberculosis. History of lung collapse 2 years back on right upper lobe. Mycoplasma/Legionella/pneumococcal testing pending. On vancomycin ceftriaxone and azithromycin. Not covering Pseudomonas however will await since he is feeling better. Will get MRSA screen. AFB culture and fungal culture. Will get QuantiFERON. Sputum for cytology. Sputum culture is pending. Benefit from bronchoscopy evaluation. Will consult Pulmonary. May need Infectious Disease 05/13/21 seen by Pulmonolgy may need to amplify abx?. Possible bronch if no improvement, however WBCs now normalized and pt reports feeling better. He would like to be discharged home. Patient is advised that we will follow Pulmonary recommendations for discharge antibiotics possibly doxy and cefdinir or other antibiotic is a considered to be appropriate. Additionally to clarify patient did not fail outpatient treatment with Augmentin he actually did not go to the pharmacy and pick it up and therefore never started taking it. (2) Hypotension: Code(s): I95.9 - Hypotension, unspecified Status: Acute Assessment and Plan: will continue home regimen and monitor (3) Dehydration: Code(s): E86.0 - Dehydration Status: Acute Assessment and Plan: Tolerating p.o. IV fluids (4) Hyperglycemia: Code(s): R73.9 - Hyperglycemia, unspecified Status: Acute (5) Hypokalemia: Code(s): E87.6 - Hypokalemia Status: Acute Assessment and Plan: will monitor and supplement (6) Tobacco dependence: Code(s): F17.200 - Nicotine dependence, unspecified, uncomplicated Status: Acute Assessment and Plan: discussed with the patient to stop smoking, patient is not ready to stop smoking at present time additional 10 minutes of smoking cessation counseling provided on 05/13/2020 Subjective Date/time seen: 05/13/21 08:25 Patient doing okay would like to go home he states he is feeling a lot better. He is advised that he is currently on vancomycin and pulmonology has been consulted. He would benefit from staying in the hospital until final recommendations can be given for his discharge antibiotics. Patient is in agreement. Additionally patient was counseled for 10 minutes on need for smoking cessation. 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 He is advised that is daily use of tobacco is much more significant and detrimental to his health Exam Narrative: Patient is comfortable, NAD HEENT: eyes are clear and none
[2021-05-13] MEDS: busPIRone HCL 5 MG TABLET 10 MG PO ×3 (08:52→17:10)
[2021-05-13] MEDS: GABAPENTIN 300 MG CAPSULE PO ×3 (08:52→17:10)
[2021-05-13] MEDS: FENOFIBRATE NANOCRYSTALLIZED 145 MG TABLET PO (08:52)
[2021-05-13] MEDS: BENZONATATE 100 MG CAPSULE PO ×3 (08:52→17:10)
[2021-05-13] MEDS: VENLAFAXINE HCL 75 MG TABLET 150 MG PO (08:52)
[2021-05-13] MEDS: ENOXAPARIN 40 MG/0.4 ML SYRINGE SUB-Q (08:53)
--- NOTE | 2021-05-13 14:00 | PM.PNPUL ---
Progress Note: A&P Assessment and Plan (1) Right upper lobe pneumonia: Onset Date: ~04/2021 Code(s): J18.9 - Pneumonia, unspecified organism Status: Acute Assessment and Plan: He has a non resolving infiltrate initially noted April 19, progressive despite outpatient antibiotics, azithromycin, Augmentin. He continues to have symptoms with intermittent fever, chills, purulent sputum, fatigue and poor appetite with anemia; Ceftriaxone was stopped, and he is now on Vancomycin and doxycycline. Vanco provides coverage for Gram (+) anaerobes but not Gram negative anaerobes, may benefit from anaerobic coverage. He has urine antigens pending for pneumococcus, Legionella, Mycoplasma as well as serum testing for QuantiFERON Gold. If he does not improve, bronchoscopy is an option. He does not appear to have a mass obstructing his airway, so probably not a post-obstructive pneumonia. He had a MBS to r/o aspiration; results are normal. Will add Cornet valve to help get sufficient sputum for a Gram stain; probably will not grow anything with antibiotics. OK TO GO HOME on Augmentin; he never took it as an out patient. May have COPD. Testing after discharge. Agree with bronchodilator and will add additional therapy prior to discharge. f/u -4 weeks in our office. (2) Tobacco dependence: Code(s): F17.200 - Nicotine dependence, unspecified, uncomplicated Status: Acute Assessment and Plan: Heavy smoker, tobacco and marijuana. Did not talk about tobacco cessation at this time, will need support to stay off tobacco. He is not going to stop marijuana which he uses for chronic pain. I told him that edible marijuana is preferable to smoking or vaping. Inhaling the substances is worse for his lung health. Subjective Date/time seen: 05/13/21 14:00 56 yo man here with Renetta; feels better, ready to go home. Has large nonresolving RUL pneumonia; talked with him and Renetta, has to stop smoking; images of chest CT seen, Augmentin will be given for 6 straight and he can come to out office in 3-[address] 2- months. Home O2 = no O2 needed. Review of Systems Review of Systems: All systems reviewed & are unremarkable except as noted in HPI and below (HPI) Constitutional: Constitutional: Reports chills ENT: Reports nasal congestion Cardiovascular: Cardiovascular: Denies pedal edema, Denies leg edema and Reports dyspnea Respiratory: Respiratory: Reports dyspnea Gastrointestinal: Gastrointestinal: Reports nausea Psychiatric: Psychiatric: Reports depression Exam Narrative: GEN: pleasant 56 year old man wearing regular clothes, lying prone on his bed, head at the foot of his bed; not in distress HEENT: pupils are equal and reactive at 5 mm, extraocular movements are intact, no frontal or maxillary tenderness, moist oral membranes, Mallampati II, no erythema or exudate, several missing teeth upper and lower jaws NECK: supple without palpable lymphadenopathy CHEST: equal air entry, equal expansion, decreased breath sounds consistent with hyperinflation; no dullness to percussion; no crackles; mild gynecomastia CV: regular S1-S2 without a murmur or gallop ABD : + bowel sounds Extremities : no clubbing cyanosis or edema PSYCH: normal speech, mood; did not test gait. Objective Data Vital Signs Vital Signs: Vital Signs - 24 hr 05/12/21 14:28 05/12/21 19:55 05/12/21 19:59 Temperature 36.3 C L 36.4 C Pulse Rate 90 91 Respiratory Rate 16 17 Blood Pressure 120/82 130/76 127/72 Pulse Oximetry 98 96 05/12/21 20:03 05/13/21 05:12 05/13/21 08:00 Temperature 36.1 C L 36.5 C Pulse Rate 94 82 Respiratory Rate 18 18 Blood Pressure 104/76 123/77 109/62 Pulse Oximetry 97 94 05/13/21 11:32 05/13/21 11:33 Temperature Pulse Rate Respiratory
[2021-05-13] MEDS: diazePAM (*CRX) 5 MG TABLET 10 MG PO (15:35)
[2021-05-13 15:56] LABS: Legionella pneumophila Ag Ur Not Detected (Not Detected)
[2021-05-13] MEDS: traZODone HCL 50 MG TABLET PO (20:32)
[2021-05-13] MEDS: QUEtiapine FUMARATE 100 MG TABLET 400 MG PO (20:32)
[2021-05-13] MEDS: MELATONIN 5 MG TABLET 20 MG PO (20:32)
[2021-05-14 00:21] LABS: Pneumococcal Antigen Urine Not Detected (Not Detected)
[2021-05-14 05:21] VITALS: BP 120/62; PULSE 86; RESP 17; TEMP 36.1; O2SAT 96
[2021-05-14 06:12] LABS: Basophils Percent Auto 0.4 % (0.2-1.2); Eosinophils Absolute Auto 0.4 K/mm3 (0-0.3); Eosinophils Percent Auto 3.7 % (0-4.4); Hematocrit 30.1 % (42.0-52.0); Immature Granulocyte Absolute 0.06 K/mm3 (0.00-0.031); Immature Granulocyte Percent A 0.6 % (0-0.5); Lymphocytes Percent Auto 17.6 % (18.3-44.2); Mean Corpuscular HGB Conc 33.2 g/dl (32-36); Mean Corpuscular Hemoglobin 29.9 pg (26-34); Mean Corpuscular Volume 90.1 fl (80-100); Mean Platelet Volume 9.8 fl (7.4-10.4); Monocytes Percent Auto 10.8 % (2.6-8.5); Neutrophils Absolute Auto 6.5 K/mm3 (1.3-6.7); Neutrophils Percent Auto 66.9 % (45.5-73.1); Platelet Count Result 354 k/mm3 (150-375); Red Blood Count 3.34 M/mm3 (4.6-6.20); Red Cell Distribution Width 14.1 % (11.5-14.5); White Blood Count 9.7 K/mm3 (4.5-10.0)
[2021-05-14 06:21] LABS: Anion Gap 6 mmol/L (8-16); Blood Urea Nitrogen 11 mg/dL (9-20); Carbon Dioxide 27 mmol/L (22-30); Chloride 105 mmol/L (98-107); Estimated CRCL calculation 80 ml/min; Estimated Glomerular Filt Rate > 60; Glucose 107 mg/dL (65-110); Potassium 3.7 mmol/L (3.4-5.0); Sodium 138 mmol/L (137-145)
--- NOTE | 2021-05-14 07:37 | PM.DS ---
DS: Admitting Diagnosis Admitting Diagnosis (1) Right upper lobe pneumonia: Code(s): (2) Hypotension: Code(s): (3) Dehydration: Code(s): (4) Hyperglycemia: Code(s): (5) Hypokalemia: Code(s): (6) Tobacco dependence: Code(s): DS: Discharge Diagnosis Discharge Diagnosis (1) Tobacco dependence: Code(s): F17.200 - Nicotine dependence, unspecified, uncomplicated Status: Acute Assessment and Plan: discussed with the patient to stop smoking, patient is not ready to stop smoking at present time additional 10 minutes of smoking cessation counseling provided on 05/13/2020 (2) Hypokalemia: Code(s): E87.6 - Hypokalemia Status: Acute Assessment and Plan: will monitor and supplement (3) Hyperglycemia: Code(s): R73.9 - Hyperglycemia, unspecified Status: Acute (4) Dehydration: Code(s): E86.0 - Dehydration Status: Acute Assessment and Plan: Tolerating p.o. IV fluids (5) Anxiety: Code(s): F41.9 - Anxiety disorder, unspecified Status: Acute (6) Hypercholesterolemia: Code(s): E78.00 - Pure hypercholesterolemia, unspecified Status: Acute (7) Diabetes: Code(s): E11.9 - Type 2 diabetes mellitus without complications Status: Acute (8) Depression: Code(s): F32.9 - Major depressive disorder, single episode, unspecified Status: Acute (9) Chronic back pain: Code(s): M54.9 - Dorsalgia, unspecified; G89.29 - Other chronic pain Status: Acute (10) Bipolar disorder: Code(s): F31.9 - Bipolar disorder, unspecified Status: Acute (11) Right upper lobe pneumonia: Onset Date: ~04/2021 Code(s): J18.9 - Pneumonia, unspecified organism Status: Acute (12) Hypotension: Code(s): I95.9 - Hypotension, unspecified Status: Acute Assessment and Plan: will continue home regimen and monitor DS: Summary Hospital Course Reason for hospitalization: sob Hospital Course: 05/11/21 16:26 Despite 2 rounds of antibiotics, although unsure is not been completely compliant with those, he continues to have right upper lobe pneumonia which appears worse on imaging today. Given his smoking history I think it would be prudent to obtain a chest CT to rule out postobstructive pneumonia. Given dysphagia last couple of weeks I suppose aspiration is a concern although the patient denies such. Swallow study ordered for a.m. Continue azithromycin and ceftriaxone pending sputum culture. Check urinary antigens. Cornet and Mucinex ordered to help mobilize secretions. 05/11 patient states currently better compared to when he arrived CT scan of the chest showed Findings consistent with cavitary pneumonia of the right upper lobe also involving the superior segment of the right lower lobe. Patchy groundglass opacities of the left upper lobe are also likely infectious. patient is being treated with ceftriaxone and azithromycin, will switch over to Levaquin and vancomycin to provide broad coverage, will continue to monitor 05/12 right upper lobe cavitary pneumonia likely infectious however has 72 pack-year smoking history. History exposure to tuberculosis. History of lung collapse 2 years back on right upper lobe. Mycoplasma/Legionella/pneumococcal testing pending. On vancomycin ceftriaxone and azithromycin. Not covering Pseudomonas however will await since he is feeling better. Will get MRSA screen. AFB culture and fungal culture. Will get QuantiFERON. Sputum for cytology. Sputum culture is pending. Benefit from bronchoscopy evaluation. Will consult Pulmonary. May need Infectious Disease 05/13/21 seen by Pulmonolgy may need to amplify abx?. Possible bronch if no improvement, however WBCs now normalized and pt reports feeling better. He would like to be discharged home. Patient is advised that we will follow Pulmonary recommendations for discharge antibi
[2021-05-15 07:19] LABS: NIL 0.02 IU/mL; Quantiferon TB Plus, 1T NEGATIVE (NEGATIVE)
== END 2021-05-14 09:10 | disposition home or self-care (01) | DRG 195 ==
LOC: ANHED 09:10 → ANH3MED 13:55
PROVIDERS: Family Medicine; Internal Medicine; Physician Assistant; Admitting Provider Internal Medicine; Emergency Provider Emergency Medicine; PCP Hospitalist; Visit Provider Hospitalist
DX: J18.9 Pneumonia, unspecified organism (principal); I95.9 Hypotension, unspecified; F17.210 Nicotine dependence, cigarettes, uncomplicated; E11.65 Type 2 diabetes mellitus with hyperglycemia; R13.10 Dysphagia, unspecified; E86.0 Dehydration; E87.6 Hypokalemia; F41.9 Anxiety disorder, unspecified; F31.9 Bipolar disorder, unspecified; E78.00 Pure hypercholesterolemia, unspecified; M54.9 Dorsalgia, unspecified; G89.29 Other chronic pain; Z79.899 Other long term (current) drug therapy
CPT/HCPCS: 36415; 71046; 71250; 80048; 80076; 80202; 81001; 82140; 82607; 82728; 82746; 83036; 83540; 83550; 83605; 83735; 84145; 84439; 84443; 84480; 85025; 85027; 86140; 86480; 86738; 87015; 87040; 87070; 87081; 87102; 87106; 87116; 87149; 87205; 87206; 87449; 87899; 92611; 94640; 96361; 96365; 96366; 96367; 96372; 99213; 99285; A9270; G0378; G0463; J0456; J0696; J1650; J3370; J7030

== ENCOUNTER 2022-01-08 17:24 | Emergency (ER) | payer MEDICARE, SELFPAY ==
[2022-01-08 17:42] VITALS: BP 109/90; PULSE 111; RESP 16; TEMP 35.5; O2SAT 98
--- NOTE | 2022-01-08 17:45 | ED.NAVMDI ---
HPI - Nausea/Vomiting/Diarrhea General Chief complaint: Nausea/Vomiting/Diarrhea Stated complaint: vomiting,cramps Time Seen by Provider: 01/08/22 17:40 Source: patient, RN notes reviewed and old records reviewed Mode of arrival: ambulatory Limitations: no limitations History of Present Illness HPI Narrative: 57 year old male presents to express care with complaints of diarrhea since Tuesday and he has spit up a couple times but denies any acute nausea at present time. Patient states that he ate part of a burger on Tuesday and he had a piece of toast yesterday and today but is drinking fluids. He states that he had a cramp to his middle right abdomen that last 20 minutes at home that brought him to his knees but denies pain of that intensity at this time, states a little sore on palpation. Patient denies any McBurney point tenderness or any CVA tenderness on examination, denies any fevers chills or sweats, no cough or feelings of congestion. Patient states that he usually smokes marijuana daily and he has not been able to smoke for a couple days,has also cut back on his tobacco usage. Patient states that he has been drinking soda and some water.He reports stools to be watery no acute foul odorous stools. MD elicited complaint: nausea, vomiting, diarrhea and other (abdominal cramping) Onset (ago): day(s) (5) Description of diarrhea: watery Associated nausea: Yes Location of pain: other (cramping to mid abdomen) Treatment prior to arrival: immodium (one dose) Related Data Home Medications Medication Instructions Recorded Confirmed buspirone 10 mg PO TID 10/04/19 01/08/22 melatonin 20 mg PO 10/04/19 01/08/22 trazodone 50 mg PO 10/04/19 01/08/22 venlafaxine 150 mg PO QAM 10/04/19 01/08/22 quetiapine 400 mg PO HS 10/12/19 01/08/22 diazepam 10 mg PO Q12H PRN 05/10/21 01/08/22 fenofibrate 145 mg PO DAILY 05/10/21 01/08/22 gabapentin 300 mg PO TID 05/10/21 01/08/22 hydrocodone-acetaminophen 1 tablet PO Q8H PRN 05/10/21 01/08/22 naproxen 500 mg PO BID PRN 05/10/21 01/08/22 Allergies Allergy/AdvReac Type Severity Reaction Status Date / Time PROPOXYPHENE NAPSYLATE Allergy Seizure Uncoded 05/10/21 14:35 STEROIDS AdvReac Irritable, Uncoded 05/10/21 14:35 SEVERE DEPRESSION Review of Systems Review of Systems: CONSTITUTIONAL: Denies fever, chills, or sweats. EYES: Denies visual changes, redness, or discharge. ENT:States some rhinorrhea, no congestion, sore throat, or otalgia. CARDIOVASCULAR: Denies chest pain, palpitations, or edema. RESPIRATORY: Denies cough or dyspnea. GASTROINTESTINAL: Positive for abdominal cramping,positive nausea, vomiting, or diarrhea. GENITOURINARY: Denies dysuria or hematuria. SKIN: Denies rash or itching. MUSCULOSKELETAL: Chronic back pain, joint pain, or myalgia. NEUROLOGIC: Denies headache, numbness, or weakness. PSYCHIATRIC: Positive for anxiety or depression. All systems reviewed & are unremarkable except as noted in HPI and below PMFSH Past Medical History Medical History Anxiety Bipolar disorder Chronic back pain Depression Hypercholesterolemia Kidney stones Posttraumatic stress disorder Spinal stenosis Tobacco dependence Surgical History Surgical History History of myringotomy History of toe surgery Family History Family History Mother Family history of migraine headaches Hypertension Family history of osteoarthritis Family history of cardiovascular disease Father Family history of alcoholism Family history of diabetes mellitus in first degree relative Diabetes mellitus Grandparent Family history of lung cancer Other Family history of malignant neoplasm Family history of mental disorder Social History Social History Social History: Surrogate dec
== END 2022-01-08 18:17 | disposition home or self-care (01) ==
PROVIDERS: Emergency Provider Registered Nurse; PCP Hospitalist
DX: K52.9 Noninfective gastroenteritis and colitis, unspecified (principal); Z20.822 Contact with and (suspected) exposure to COVID-19; F17.210 Nicotine dependence, cigarettes, uncomplicated; F12.90 Cannabis use, unspecified, uncomplicated; E78.00 Pure hypercholesterolemia, unspecified; M48.00 Spinal stenosis, site unspecified; F31.9 Bipolar disorder, unspecified; F41.9 Anxiety disorder, unspecified
CPT/HCPCS: 87426; 87804; 99213; C9803; G0463

== ENCOUNTER 2022-01-09 21:23 | Emergency (ER) | payer MEDICARE, SELFPAY ==
--- NOTE | ~2022-01-09 | CT_ITS ---
EXAMINATION: CT abdomen pelvis w con EXAM DATE: 01/09/2022 23:05 INDICATION: Abdominal pain and cramping . Umbilical region abdominal pain. TECHNIQUE: Spiral CT of the abdomen and pelvis was performed following intravenous injection of 100 m L Omnipaque 350. Axial, coronal and sagittal images of the abdomen and pelvis were reviewed. The do se-length product (DLP) for this examination was 1013.04 mGy-cm. The exposure was tailored according to patient size (auto mA exposure control), and iterative reconstruction (ASIR) was used as addition al dose reduction technique. Comparison is made to prior examination from 10/11/2019. FINDINGS: There is hepatic steatosis without suspicious focal lesion identified. Spleen, adrenal glan ds, pancreas are unremarkable. Gallbladder is unremarkable. No biliary obstruction. Portal and spl enic veins are patent. Kidneys enhance symmetrically. There is no hydronephrosis. The prostate is unremarkable. Moderate diffuse bladder wall thickening, could indicate chronic cystitis. Acute cyst itis not excludable. There is no retroperitoneal or pelvic lymphadenopathy. There is mild scattere d arteriosclerotic disease. The appendix is normal. The stomach and small bowel are unremarkable. There is fluid in the ascendi ng colon, transverse and descending colon are collapsed. No free intraperitoneal gas. The heart i s normal in size. There are no pericardial or pleural effusions. The lung bases are unremarkable. There are no osteoblastic or osteolytic lesions identified. IMPRESSION: 1. Bladder wall thickening, could indicate chronic or possibly acute cystitis. 2. Advanced lower lumbar disc disease. 3. Hepatic steatosis. Reviewed, dictated and finalized at location A.
[2022-01-09 21:24] VITALS: BP 141/97; PULSE 96; RESP 16; TEMP 36.6; O2SAT 97
--- NOTE | 2022-01-09 21:35 | PC.NURSE ---
Pt states he was seen at urgent care last PM and was prescribed Zofran and Bentyl. Pt states he has been taking medications with no relief.
[2022-01-09 21:48] LABS: Basophils Absolute Auto 0.1 K/mm3 (0.0-0.1); Basophils Percent Auto 0.6 % (0.2-1.2); Eosinophils Absolute Auto 0.2 K/mm3 (0-0.3); Eosinophils Percent Auto 1.5 % (0-4.4); Hematocrit 43.5 % (42.0-52.0); Immature Granulocyte Absolute 0.05 K/mm3 (0.00-0.031); Immature Granulocyte Percent A 0.4 % (0-0.5); Lymphocytes Absolute Auto 2.33 K/mm3 (0.9-3.2); Lymphocytes Percent Auto 20.9 % (18.3-44.2); Mean Corpuscular HGB Conc 34.5 g/dl (32-36); Mean Corpuscular Hemoglobin 32.1 pg (26-34); Mean Corpuscular Volume 92.9 fl (80-100); Mean Platelet Volume 9.6 fl (7.4-10.4); Monocytes Percent Auto 8.9 % (2.6-8.5); Neutrophils Absolute Auto 7.6 K/mm3 (1.3-6.7); Neutrophils Percent Auto 67.7 % (45.5-73.1); Platelet Count Result 312 k/mm3 (150-375); Red Blood Count 4.68 M/mm3 (4.6-6.20); Red Cell Distribution Width 12.8 % (11.5-14.5); White Blood Count 11.2 K/mm3 (4.5-10.0)
[2022-01-09 21:58] LABS: Alanine Aminotransferase 37 U/L (4-50); Albumin Level 4.7 g/dL (3.5-5.1); Alkaline Phosphatase 86 U/L (38-126); Anion Gap 11 mmol/L (8-16); Aspartate Amino Transferase 42 U/L (17-59); Bilirubin,Total 0.6 mg/dL (0.2-1.3); Blood Urea Nitrogen 18 mg/dL (9-20); Calcium 8.5 mg/dL (8.4-10.2); Carbon Dioxide 21 mmol/L (22-30); Chloride 103 mmol/L (98-107); Estimated CRCL calculation 81 ml/min; Estimated Glomerular Filt Rate > 60; Glucose 155 mg/dL (65-110); Lipase 554 U/L (23-300); Potassium 3.4 mmol/L (3.4-5.0); Sodium 135 mmol/L (137-145)
--- NOTE | 2022-01-09 21:58 | PC.NURSE ---
Pt unable to provide urine sample at this time. States he does not feel the need to go and his pain is too intense.
[2022-01-09] MEDS: HYDROmorphone HCL INJ (*CRX) 1 MG/ML SYR IV PUSH (22:08)
[2022-01-09] MEDS: ONDANSETRON INJ 4 MG/2 ML VIAL IV PUSH (22:08)
[2022-01-09] MEDS: SODIUM CHLORIDE 0.9% IV 1,000 ML 999 ML IV CONT ×2 (22:08→23:19)
--- NOTE | 2022-01-09 22:10 | ED.ABDPAIN ---
HPI - Abdominal Pain General Chief Complaint: Abdominal Pain Stated Complaint: abd pain Time Seen by Provider: 01/09/22 21:47 Source: patient, family and RN notes reviewed Mode of arrival: ambulatory Limitations: no limitations History of Present Illness HPI narrative: 57-year-old male presented to the [facility] for evaluation of nausea vomiting diarrhea and associated abdominal pain. Patient states his symptoms started yesterday. Patient was evaluated at an urgent care and was diagnosed with gastroenteritis. Patient was provided medications for nausea control and started on Bentyl. Patient states that the pain has been persistent. Patient states it has alternated between his left upper quadrant and right upper quadrant. Patient does report prior history of kidney stones but states this feels different than his previous stones. Patient does take 1000 g of naproxen daily due to chronic pain. Patient denies any prior history of GERD or ulcers. Patient states he has been taking at high dose of naproxen for approximately 1 year. Related Data Home Medications Medication Instructions Recorded Confirmed buspirone 10 mg PO TID 10/04/19 01/08/22 melatonin 20 mg PO HS 10/04/19 01/08/22 trazodone 50 mg PO HS 10/04/19 01/08/22 venlafaxine 150 mg PO QAM 10/04/19 01/08/22 quetiapine 400 mg PO HS 10/12/19 01/08/22 diazepam 10 mg PO Q12H PRN 05/10/21 01/08/22 fenofibrate 145 mg PO DAILY 05/10/21 01/08/22 gabapentin 300 mg PO TID 05/10/21 01/08/22 hydrocodone-acetaminophen 1 tablet PO Q8H PRN 05/10/21 01/08/22 naproxen 500 mg PO BID PRN 05/10/21 01/08/22 Allergies Allergy/AdvReac Type Severity Reaction Status Date / Time PROPOXYPHENE NAPSYLATE Allergy Seizure Uncoded 01/09/22 22:22 STEROIDS AdvReac Irritable, Uncoded 01/09/22 22:22 SEVERE DEPRESSION Review of Systems Review of Systems: CONSTITUTIONAL: Denies fever, chills, or sweats. EYES: Denies visual changes, redness, or discharge. ENT: Denies rhinorrhea, congestion, sore throat, or otalgia. CARDIOVASCULAR: Denies chest pain, palpitations, or edema. RESPIRATORY: Denies cough or dyspnea. GASTROINTESTINAL: upper abdominal pain GENITOURINARY: Denies dysuria or hematuria. SKIN: Denies rash or itching. MUSCULOSKELETAL: Denies back pain, joint pain, or myalgia. NEUROLOGIC: Denies headache, numbness, or weakness. [facility] Past Medical History Medical History Anxiety Bipolar disorder Chronic back pain Depression Hypercholesterolemia Kidney stones Posttraumatic stress disorder Spinal stenosis Tobacco dependence Surgical History Surgical History History of myringotomy History of toe surgery Family History Family History Mother Family history of migraine headaches Hypertension Family history of osteoarthritis Family history of cardiovascular disease Father Family history of alcoholism Family history of diabetes mellitus in first degree relative Diabetes mellitus Grandparent Family history of lung cancer Other Family history of malignant neoplasm Family history of mental disorder Social History Social History Social History: Surrogate decision maker: Roxanne Galiciaubert, spouse. Code status: Full code. Smoking packs per day: 2 Smoking cigarettes per day: 40.0 Years smoked: 36 Smoking pack-years: 72.00 Smoking status: Current every day smoker Tobacco type: cigarettes Second hand tobacco smoke exposure: Yes Alcohol intake: never Alcohol use details: Rare alcohol use. Substance use: current Substance use type: marijuana Other substance usage details: uses daily Last use: 05/08/2021 Additional occupation/education comments: Disabled. Sexual Orientation (if Verbalized by the Patient): Straight
[2022-01-09] MEDS: BELLADONNA ALK/PHENOB ELIX 10 ML, MAG HYDROX/ALUMINUM HYD/SIMETH 30 ML, LIDOCAINE HCL 2... PO (22:22)
[2022-01-09 23:19] VITALS: PULSE 85; RESP 16; O2SAT 98
--- NOTE | 2022-01-09 23:21 | PC.NURSE ---
Pt states he cannot provide urine sample. EDP made aware, denies need for straight catheterization
[2022-01-09 23:39] LABS: Add Urine Microscopic? YES; Appearance Urine Clear (Clear); Bilirubin Urine Negative (Negative); Blood Urine 1+ (Negative); Color Urine Yellow (Yellow); Glucose Urine UA Negative (Negative); Ketones Urine Negative (Negative); Leukocyte Esterase Ur Negative LEU/UL (Negative); Mucus Urine Rare /lpf; Nitrate Urine Negative (Negative); Protein Urine 1+ mg/dL (Negative); Urobilinogen Urine Negative mg/dL (<2.0); WBC Urine 0-3 /hpf
[2022-01-09 23:40] VITALS: BP 149/87; PULSE 83; RESP 18; O2SAT 97
[2022-01-10] MEDS: PANTOPRAZOLE SODIUM IV 40 MG VIAL IV PUSH (00:15)
[2022-01-10 00:19] VITALS: BP 131/89; PULSE 80; RESP 16; O2SAT 97
== END 2022-01-10 00:44 | disposition home or self-care (01) ==
PROVIDERS: Emergency Medicine; Emergency Provider Emergency Medicine; PCP Hospitalist
DX: R10.12 Left upper quadrant pain (principal); E78.00 Pure hypercholesterolemia, unspecified; G89.29 Other chronic pain; F31.9 Bipolar disorder, unspecified; F41.9 Anxiety disorder, unspecified; F43.10 Post-traumatic stress disorder, unspecified; Z87.442 Personal history of urinary calculi; F17.210 Nicotine dependence, cigarettes, uncomplicated; K76.0 Fatty (change of) liver, not elsewhere classified; M51.9 Unspecified thoracic, thoracolumbar and lumbosacral intervertebral disc disorder; R93.41 Abnormal radiologic findings on diagnostic imaging of renal pelvis, ureter, or bladder
CPT/HCPCS: 36415; 74177; 80053; 81001; 83690; 85025; 96361; 96374; 96375; 99284; A9270; C9113; J1170; J2405; J7030; Q9967

== ENCOUNTER 2022-07-19 02:34 | Day surgery (SDC) | payer MEDICARE, SELFPAY ==
[2022-07-12 11:21] VITALS: BMI 30.9
[2022-07-19 06:28] VITALS: BP 126/85; PULSE 95; RESP 18; TEMP 36.2; O2SAT 98
[2022-07-19] MEDS: LACTATED RINGERS 1,000 ML 150 ML IV CONT (06:42)
--- NOTE | 2022-07-19 06:59 | WPDANESEPPF ---
Anes - Initial Pre Proc Eval Procedure: Operation Date: 07/19/22 07:30 Proposed Procedures p Colonoscopy - Alonzo Jain MD Date/Time: 07/19/22 06:59 Surgeon: Alonzo Jain MD Pre Op Diagnosis: diarrhea Patient Data Age: 57 Gender: M Height: 1.75 m Weight: 91.3 kg Last Vital Signs Temp 36.2 C L 07/19/22 06:28 Pulse 95 07/19/22 06:28 Resp 18 07/19/22 06:28 BP 126/85 07/19/22 06:28 Pulse Ox 98 07/19/22 06:28 O2 Del Method Room Air 07/19/22 06:28 Allergies Allergy/AdvReac Type Severity Reaction Status Date / Time meperidine [From Demerol] Allergy Fainting Verified 07/19/22 06:25 PROPOXYPHENE NAPSYLATE Allergy Seizure Uncoded 07/19/22 06:25 STEROIDS AdvReac Irritable, Uncoded 07/19/22 06:25 SEVERE DEPRESSION Home Medications Medication Instructions Recorded Confirmed Type buspirone 5 mg tablet 15 mg PO TID 10/04/19 07/12/22 History melatonin 3 mg tablet 20 mg PO HS 10/04/19 07/12/22 History venlafaxine 75 mg tablet 150 mg PO QAM 10/04/19 07/12/22 History quetiapine 400 mg tablet 400 mg PO HS 10/12/19 07/12/22 History tizanidine 4 mg capsule See Rx Instructions .Route 05/26/20 07/12/22 Rx .COMPLEX #270 caps diazepam 10 mg tablet 10 mg PO Q12H PRN Anxiety 05/10/21 07/12/22 History fenofibrate 160 mg tablet 145 mg PO DAILY 05/10/21 07/12/22 History gabapentin 300 mg capsule 300 mg PO TID 05/10/21 07/12/22 History hydrocodone 10 mg-acetaminophen 1 tablet PO Q8H PRN Pain 05/10/21 07/12/22 History 325 mg tablet albuterol 90 mcg/actuation aerosol 90 mcg inhalation DAILY 07/06/22 07/12/22 History inhaler hyoscyamine sulfate 0.125 mg tablet 0.125 mg PO QID 1 month #120 tabs 07/09/22 07/12/22 Rx Patient hx anesthesia problems: none Family hx anesthesia problems: none Results Review: All pre-operative results and documents have been reviewed as part of the pre-operative evaluation. REPLACED BY [facility] Past Medical History Medical History (Updated 07/06/22 @ 12:50 by Rosalba Corona APRN) Anxiety Bipolar disorder Chronic back pain Depression Hypercholesterolemia Kidney stones Obesity (BMI 30.0-34.9) Posttraumatic stress disorder Spinal stenosis Tobacco abuse Tobacco dependence Surgical History Surgical History History of myringotomy History of toe surgery Family History Family History Mother Family history of migraine headaches Hypertension Family history of osteoarthritis Family history of cardiovascular disease Father Family history of alcoholism Family history of diabetes mellitus in first degree relative Diabetes mellitus Grandparent Family history of lung cancer Other Family history of malignant neoplasm Family history of mental disorder Social History Social History Social History: Surrogate decision maker: Roxanne Galiciaubert, spouse. Code status: Full code. Smoking packs per day: 2 Smoking cigarettes per day: 40.0 Years smoked: 39 Smoking pack-years: 78.00 Smoking status: Current every day smoker Tobacco type: cigarettes Second hand tobacco smoke exposure: Yes Alcohol intake: never Alcohol use details: Rare alcohol use. Substance use: current Substance use type: marijuana Other substance usage details: uses daily Last use: 05/08/2021 Living arrangements: alone Additional occupation/education comments: Disabled. Sexual Orientation (if Verbalized by the Patient): Straight or Heterosexual Spiritual care concerns: No Anes - Eval Final PreProcedure Day of Procedure 07/19/22 06:59 Patient weight: overweight Heart: regular rate and rhythm Lungs: clear to auscultation Airway: Mallampati scale class II Neurological: alert and oriented Last oral intake: >/= 8 hours ASA classification: III Emergent: no
--- NOTE | 2022-07-19 07:28 | WPDHPUPDATE1 ---
History and Physical Update Update Date/Time: 07/19/22 07:28 History and Physical has been reviewed, including an updated exam of the patient. There are NO changes in the patient's condition. Risks, benefits, and alternatives have been discussed and questions answered. Patient agrees to proceed with procedure.
[2022-07-19 07:48] VITALS: BP 127/80; PULSE 76; RESP 32; O2SAT 99
[2022-07-19 07:58] VITALS: BP 116/76; PULSE 75; RESP 23; O2SAT 100
[2022-07-19 08:08] VITALS: BP 121/76; PULSE 78; RESP 24; O2SAT 100
== END 2022-07-19 08:18 | disposition home or self-care (01) ==
PROVIDERS: PCP Hospitalist; Visit Provider Internal Medicine Gastroenterology
PROC: 0DJD8ZZ Inspection of Lower Intestinal Tract, Via Natural or Artificial Opening Endoscopic (ICD-10-PCS; CPT 45378; principal; 2022-07-19 07:30)
DX: Z12.11 Encounter for screening for malignant neoplasm of colon (principal); D12.2 Benign neoplasm of ascending colon; D12.0 Benign neoplasm of cecum; D12.5 Benign neoplasm of sigmoid colon; D12.3 Benign neoplasm of transverse colon; K63.5 Polyp of colon; K64.8 Other hemorrhoids; F41.9 Anxiety disorder, unspecified; F31.9 Bipolar disorder, unspecified; E78.00 Pure hypercholesterolemia, unspecified; M48.00 Spinal stenosis, site unspecified; F17.210 Nicotine dependence, cigarettes, uncomplicated; F12.90 Cannabis use, unspecified, uncomplicated; R19.7 Diarrhea, unspecified; R19.4 Change in bowel habit
CPT/HCPCS: 45385; 88305; J2704; J7120

== ENCOUNTER 2022-09-12 09:04 | Emergency (ER) | payer MEDICARE, SELFPAY ==
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
[2022-09-12 09:10] VITALS: BP 150/98; PULSE 97; RESP 16; TEMP 36.4; O2SAT 98
[2022-09-12 10:30] VITALS: PULSE 99
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
--- NOTE | 2022-09-12 11:14 | PC.NURSE ---
Pt states he unable urinate at this time.
[2022-09-12 11:16] LABS: Basophils Absolute Auto 0.1 K/mm3 (0.0-0.1); Basophils Percent Auto 0.5 % (0.2-1.2); Eosinophils Absolute Auto 0.2 K/mm3 (0-0.3); Eosinophils Percent Auto 1.4 % (0-4.4); Hematocrit 44.2 % (42.0-52.0); Hemoglobin 14.9 g/dL (14.0-18.0); Immature Granulocyte Absolute 0.06 K/mm3 (0.00-0.031); Immature Granulocyte Percent A 0.4 % (0-0.5); Lymphocytes Absolute Auto 1.51 K/mm3 (0.9-3.2); Lymphocytes Percent Auto 10.2 % (18.3-44.2); Mean Corpuscular HGB Conc 33.7 g/dl (32-36); Mean Corpuscular Hemoglobin 31.6 pg (26-34); Mean Corpuscular Volume 93.6 fl (80-100); Mean Platelet Volume 9.8 fl (7.4-10.4); Monocytes Absolute Auto 1.4 K/mm3 (0.1-0.6); Monocytes Percent Auto 9.2 % (2.6-8.5); Neutrophils Absolute Auto 11.6 K/mm3 (1.3-6.7); Neutrophils Percent Auto 78.3 % (45.5-73.1); Platelet Count Result 283 k/mm3 (150-375); Red Blood Count 4.72 M/mm3 (4.6-6.20); Red Cell Distribution Width 13.3 % (11.5-14.5); White Blood Count 14.8 K/mm3 (4.5-10.0)
[2022-09-12] MEDS: SODIUM CHLORIDE 0.9% IV 1,000 ML 999 ML IV CONT (11:28)
[2022-09-12] MEDS: DICYCLOMINE HCL INJ 20 MG/2 ML VIAL IM (11:28)
[2022-09-12 11:32] LABS: Lactic Acid Reflex 1.3 mmol/L (0.7-2.0)
--- NOTE | 2022-09-12 11:53 | PC.NURSE ---
Pt attempting to provide urine sample at this time
[2022-09-12 12:32] LABS: Appearance Urine Clear (Clear); Bilirubin Urine 2+ (Negative); Blood Urine 1+ (Negative); Color Urine Yellow (Yellow); Glucose Urine UA Trace mg/dL (Negative); Ketones Urine 1+ mg/dL (Negative); Leukocyte Esterase Ur Negative LEU/UL (Negative); Nitrate Urine Negative (Negative); Protein Urine 2+ mg/dL (Negative); Specific Grav Ur 1.025 (1.001-1.035); pH Urine 5.5 (5.0-9.0)
[2022-09-12 12:40] LABS: Bacteria Urine Trace /hpf; Mucus Urine Heavy /lpf; Squamous Epithelial Cell Urine Rare /hpf (Few)
[2022-09-12 12:45] LABS: Add Urine Microscopic? YES
[2022-09-12 13:13] LABS: Alanine Aminotransferase 29 U/L (6-50); Albumin Level 4.8 g/dL (3.5-5.1); Alkaline Phosphatase 101 U/L (38-126); Anion Gap 9 mmol/L (8-16); Aspartate Amino Transferase 31 U/L (17-59); Bilirubin,Total 0.9 mg/dL (0.2-1.3); Blood Urea Nitrogen 18 mg/dL (9-20); Calcium 8.6 mg/dL (8.4-10.2); Carbon Dioxide 24 mmol/L (22-30); Chloride 106 mmol/L (98-107); Estimated CRCL calculation 74 ml/min; Estimated Glomerular Filt Rate > 60; Glucose 140 mg/dL (65-110); Potassium 4.1 mmol/L (3.4-5.0); Sodium 139 mmol/L (137-145)
[2022-09-12 13:15] VITALS: BP 137/94; PULSE 92; RESP 16; O2SAT 97
== END 2022-09-12 13:42 | disposition home or self-care (01) ==
PROVIDERS: Emergency Provider Nurse Practitioner Family; PCP Hospitalist
DX: R19.7 Diarrhea, unspecified (principal); E11.9 Type 2 diabetes mellitus without complications; E78.00 Pure hypercholesterolemia, unspecified; E66.9 Obesity, unspecified; Z68.29 Body mass index [BMI] 29.0-29.9, adult; F41.9 Anxiety disorder, unspecified; F31.9 Bipolar disorder, unspecified; F43.10 Post-traumatic stress disorder, unspecified; Z87.442 Personal history of urinary calculi; F17.210 Nicotine dependence, cigarettes, uncomplicated; M47.816 Spondylosis without myelopathy or radiculopathy, lumbar region; M47.812 Spondylosis without myelopathy or radiculopathy, cervical region; R82.998 Other abnormal findings in urine
CPT/HCPCS: 36415; 72040; 72100; 80053; 81001; 83605; 85025; 87086; 87088; 96360; 96372; 99283; J0500; J7030

== ENCOUNTER 2022-11-27 12:53 | Emergency (ER) | payer MEDICARE, SELFPAY ==
--- NOTE | ~2022-11-27 | CT_ITS ---
EXAMINATION: CT abdomen pelvis w con DATE: 11/27/2022 15:36 INDICATION: abd pain, vomiting, leukocytosis TECHNIQUE: Computed tomography (CT) of the abdomen and pelvis was performed with 100 mL Omnipaque-350 intravenous contrast. Automated exposure control and iterative reconstruction technique were employe d. The dose-length product was 834.11 mGy-cm. COMPARISON: 01/09/2022. FINDINGS: Lower thorax: Unremarkable Liver: The liver is enlarged. Diffuse fatty infiltration. Biliary/Gallbladder: Gallbladder is normal. No bile duct dilation. Pancreas: No mass or duct dilation. Spleen: Normal. Adrenals:No mass. Kidneys: Simple left upper pole cyst. No suspicious mass, hydronephrosis, or obstructing calcificatio n. GI tract: No small or large bowel dilation. Normal appendix. Mesentery/Peritoneum: No ascites, mass, or free air. Retroperitoneum: No mass. Atherosclerotic abdominal aortic and/or arterial calcifications. Pelvis: Moderate bladder wall thickening. Normal appearing prostate.. Soft Tissues: Soft tissues and body wall unremarkable. Bones: No acute osseous finding. IMPRESSION: Hepatomegaly. Steatosis. Bladder wall thickening, as can be seen with outlet compromise or cystitis. Reviewed, dictated and finalized at location [facility] IMPRESSION: Hepatomegaly. Steatosis. Bladder wall thickening, as can be seen with outlet co mpromise or cystitis.
[2022-11-27 13:28] VITALS: BP 150/84; PULSE 77; RESP 20; TEMP 36.3; O2SAT 99
[2022-11-27 13:48] LABS: Basophils Absolute Auto 0.1 K/mm3 (0.0-0.1); Basophils Percent Auto 0.5 % (0.2-1.2); Eosinophils Absolute Auto 0.1 K/mm3 (0-0.3); Eosinophils Percent Auto 0.7 % (0-4.4); Hematocrit 44.7 % (42.0-52.0); Hemoglobin 15.1 g/dL (14.0-18.0); Immature Granulocyte Absolute 0.06 K/mm3 (0.00-0.031); Immature Granulocyte Percent A 0.4 % (0-0.5); Lymphocytes Percent Auto 8.2 % (18.3-44.2); Mean Corpuscular HGB Conc 33.8 g/dl (32-36); Mean Corpuscular Hemoglobin 31.8 pg (26-34); Mean Corpuscular Volume 94.1 fl (80-100); Mean Platelet Volume 9.3 fl (7.4-10.4); Monocytes Absolute Auto 0.5 K/mm3 (0.1-0.6); Monocytes Percent Auto 3.9 % (2.6-8.5); Neutrophils Absolute Auto 11.5 K/mm3 (1.3-6.7); Neutrophils Percent Auto 86.3 % (45.5-73.1); Platelet Count Result 332 k/mm3 (150-375); Red Blood Count 4.75 M/mm3 (4.6-6.20); Red Cell Distribution Width 13.7 % (11.5-14.5); White Blood Count 13.4 K/mm3 (4.5-10.0)
[2022-11-27 13:52] LABS: Alanine Aminotransferase 28 U/L (6-50); Albumin Level 5.1 g/dL (3.5-5.1); Alkaline Phosphatase 103 U/L (38-126); Anion Gap 6 mmol/L (8-16); Aspartate Amino Transferase 32 U/L (17-59); Bilirubin,Total 0.5 mg/dL (0.2-1.3); Blood Urea Nitrogen 14 mg/dL (9-20); Calcium 9.2 mg/dL (8.4-10.2); Carbon Dioxide 24 mmol/L (22-30); Chloride 105 mmol/L (98-107); Estimated CRCL calculation 82 ml/min; Estimated Glomerular Filt Rate > 60; Glucose 156 mg/dL (65-110); Lipase 142 U/L (23-300); Potassium 4.6 mmol/L (3.4-5.0); Sodium 135 mmol/L (137-145)
--- NOTE | 2022-11-27 15:07 | ED.NAVMDI ---
HPI - Nausea/Vomiting/Diarrhea General Chief complaint: Nausea/Vomiting/Diarrhea Stated complaint: vomiting/diarrhea Time Seen by Provider: 11/27/22 14:55 Source: patient Mode of arrival: ambulatory Limitations: no limitations History of Present Illness HPI Narrative: This is a 57 year old male that presents to the ER for abdominal pain ongoing since last night. Associated with nausea, vomiting and diarrhea. Does report some blood in the stool a couple of days prior due to his hemorrhoids. Denies fever, dysuria, hematuria. Related Data Home Medications Medication Instructions Recorded Confirmed buspirone 5 mg tablet 15 mg PO TID 10/04/19 07/12/22 melatonin 3 mg tablet 20 mg PO HS 10/04/19 07/12/22 venlafaxine 75 mg tablet 150 mg PO QAM 10/04/19 07/12/22 quetiapine 400 mg tablet 400 mg PO HS 10/12/19 07/12/22 diazepam 10 mg tablet 10 mg PO Q12H PRN Anxiety 05/10/21 07/12/22 fenofibrate 160 mg tablet 145 mg PO DAILY 05/10/21 07/12/22 gabapentin 300 mg capsule 300 mg PO TID 05/10/21 07/12/22 hydrocodone 10 mg-acetaminophen 1 tablet PO Q8H PRN Pain 05/10/21 07/12/22 325 mg tablet albuterol 90 mcg/actuation aerosol 90 mcg inhalation DAILY 07/06/22 07/12/22 inhaler Allergies Allergy/AdvReac Type Severity Reaction Status Date / Time meperidine [From Demerol] Allergy Fainting Verified 11/27/22 13:34 PROPOXYPHENE NAPSYLATE Allergy Seizure Uncoded 11/27/22 13:34 STEROIDS AdvReac Irritable, Uncoded 11/27/22 13:34 SEVERE DEPRESSION Review of Systems Review of Systems: CONSTITUTIONAL: Denies fever GASTROINTESTINAL: Reports abdominal pain, nausea, vomiting, and diarrhea. GENITOURINARY: Denies dysuria or hematuria. All systems reviewed & are unremarkable except as noted in HPI and below PMFSH Past Medical History Medical History Anxiety Bipolar disorder Chronic back pain Depression Hypercholesterolemia Kidney stones Obesity (BMI 30.0-34.9) Posttraumatic stress disorder Spinal stenosis Tobacco abuse Tobacco dependence Surgical History Surgical History History of myringotomy History of toe surgery Family History Family History Mother Family history of migraine headaches Hypertension Family history of osteoarthritis Family history of cardiovascular disease Father Family history of alcoholism Family history of diabetes mellitus in first degree relative Diabetes mellitus Grandparent Family history of lung cancer Other Family history of malignant neoplasm Family history of mental disorder Social History Social History Social History: Surrogate decision maker: Roxanne Morton, spouse. Code status: Full code. Smoking packs per day: 2 Smoking cigarettes per day: 40.0 Years smoked: 39 Smoking pack-years: 78.00 Smoking status: Current every day smoker Tobacco type: cigarettes Second hand tobacco smoke exposure: Yes Alcohol intake: never Alcohol use details: Rare alcohol use. Substance use: current Substance use type: marijuana Other substance usage details: uses daily Last use: 05/08/2021 Living arrangements: alone Occupation/Education: other Additional occupation/education comments: Disabled. Sexual Orientation (if Verbalized by the Patient): Straight or Heterosexual Spiritual care concerns: No Exam Narrative: GENERAL: Well-appearing, well-nourished, and in no acute distress. HEAD: Normocephalic, atraumatic. EYES: EOMI. CHEST: Clear to auscultation. No respiratory distress. No wheezes rales or rhonchi HEART: Regular rate and rhythm. No murmur heard. Normal peripheral pulses. ABDOMEN: Soft, nondistended, normal active bowel sounds. Tender to palpation throughout the left side of the abdomen, without guarding. No CVA tenderness
[2022-11-27] MEDS: SODIUM CHLORIDE 0.9% IV 1,000 ML 999 ML IV CONT (15:15)
[2022-11-27] MEDS: ONDANSETRON INJ 4 MG/2 ML VIAL IV PUSH (15:16)
[2022-11-27] MEDS: FAMOTIDINE 20 MG/2 ML VIAL IV PUSH (15:16)
[2022-11-27] MEDS: diphenhydrAMINE HCl INJ 50 MG/ML VIAL 25 MG IV PUSH (16:24)
[2022-11-27] MEDS: METOCLOPRAMIDE HCL INJ 10 MG/2 ML VIAL IV PUSH (16:24)
[2022-11-27 17:27] LABS: Appearance Urine Clear (Clear); Bilirubin Urine Negative (Negative); Blood Urine 1+ (Negative); Color Urine Yellow (Yellow); Glucose Urine UA Negative (Negative); Ketones Urine Negative (Negative); Leukocyte Esterase Ur Negative LEU/UL (Negative); Nitrate Urine Negative (Negative); Protein Urine 1+ mg/dL (Negative); Specific Grav Ur 1.015 (1.001-1.035); Urobilinogen Urine 0.2 mg/dL (<2.0); pH Urine 5.5 (5.0-9.0)
[2022-11-27 17:38] LABS: Mucus Urine Rare /lpf; Squamous Epithelial Cell Urine Rare /hpf (Few); WBC Urine 0-3 /hpf
[2022-11-27 17:46] LABS: Add Urine Microscopic? YES
[2022-11-27 18:45] VITALS: BP 144/84; PULSE 80; RESP 16; O2SAT 98
== END 2022-11-27 18:50 | disposition home or self-care (01) ==
PROVIDERS: Emergency Provider Physician Assistant; PCP Hospitalist
DX: R10.9 Unspecified abdominal pain (principal); R10.12 Left upper quadrant pain; E78.00 Pure hypercholesterolemia, unspecified; E66.9 Obesity, unspecified; Z68.29 Body mass index [BMI] 29.0-29.9, adult; F43.10 Post-traumatic stress disorder, unspecified; F41.9 Anxiety disorder, unspecified; F32.A Depression, unspecified; Z87.442 Personal history of urinary calculi; F17.210 Nicotine dependence, cigarettes, uncomplicated; R16.0 Hepatomegaly, not elsewhere classified; K76.0 Fatty (change of) liver, not elsewhere classified; R93.41 Abnormal radiologic findings on diagnostic imaging of renal pelvis, ureter, or bladder
CPT/HCPCS: 36415; 74177; 80053; 81001; 83690; 85025; 96365; 96366; 96375; 99284; J0131; J1200; J2405; J2765; J7030; Q9967

== ENCOUNTER 2023-09-14 12:04 | Emergency (ER) | payer MEDICARE, SELFPAY ==
[2023-09-14] VITALS (26 sets, daily range): BP systolic 113–152; BP diastolic 79–96; PULSE 77–99; RESP 12–20; TEMP 36.9; O2SAT 92–100
--- NOTE | 2023-09-14 12:44 | ED.NAVMDI ---
HPI - Nausea/Vomiting/Diarrhea General Chief complaint: Nausea/Vomiting/Diarrhea Stated complaint: dehydrated Time Seen by Provider: 09/14/23 12:19 History of Present Illness HPI Narrative: Patient is a 58-year-old male with history of bipolar disorder, COPD, chronic back pain presenting with diarrhea. States that he has been having watery diarrhea for the last 5 days. Nonbloody. States that he has been able to keep down some Gatorade and water though he was vomiting profusely for the 1st few days. States that he feels dehydrated. Reports intermittent headaches and lightheadedness. Denies abdominal pain. No chest pain shortness of breath. No further complaints. Related Data Home Medications Medication Instructions Recorded Confirmed buspirone 5 mg tablet 15 mg PO TID 10/04/19 07/12/22 melatonin 3 mg tablet 20 mg PO HS 10/04/19 07/12/22 venlafaxine 75 mg tablet 150 mg PO QAM 10/04/19 07/12/22 quetiapine 400 mg tablet 400 mg PO HS 10/12/19 07/12/22 diazepam 10 mg tablet 10 mg PO Q12H PRN Anxiety 05/10/21 07/12/22 fenofibrate 160 mg tablet 145 mg PO DAILY 05/10/21 07/12/22 gabapentin 300 mg capsule 300 mg PO TID 05/10/21 07/12/22 hydrocodone 10 mg-acetaminophen 1 tablet PO Q8H PRN Pain 05/10/21 07/12/22 325 mg tablet albuterol 90 mcg/actuation aerosol 90 mcg inhalation DAILY 07/06/22 07/12/22 inhaler Allergies Allergy/AdvReac Type Severity Reaction Status Date / Time meperidine [From Demerol] Allergy Fainting Verified 11/27/22 13:34 propoxyphene Allergy Seizure Verified 09/14/23 15:02 STEROIDS AdvReac Irritable, Uncoded 11/27/22 13:34 SEVERE DEPRESSION Review of Systems Review of Systems: All systems reviewed & are unremarkable except as noted in HPI and below PMFSH Past Medical History Medical History Anxiety Bipolar disorder Chronic back pain Depression Hypercholesterolemia Kidney stones Obesity (BMI 30.0-34.9) Posttraumatic stress disorder Spinal stenosis Tobacco abuse Tobacco dependence Surgical History Surgical History History of myringotomy History of toe surgery Family History Family History Mother Family history of migraine headaches Hypertension Family history of osteoarthritis Family history of cardiovascular disease Father Family history of alcoholism Family history of diabetes mellitus in first degree relative Diabetes mellitus Grandparent Family history of lung cancer Other Family history of malignant neoplasm Family history of mental disorder Social History Social History Social History: Surrogate decision maker: Roxanne Morton, spouse. Code status: Full code. Smoking packs per day: 2 Smoking cigarettes per day: 40.0 Years smoked: 39 Smoking pack-years: 78.00 Smoking status: Current every day smoker Tobacco type: cigarettes Second hand tobacco smoke exposure: Yes Alcohol intake: never Alcohol use details: Rare alcohol use. Substance use: current Substance use type: marijuana Other substance usage details: uses daily Last use: 05/08/2021 Living arrangements: alone Occupation/Education: other Additional occupation/education comments: Disabled. Sexual Orientation (if Verbalized by the Patient): Straight or Heterosexual Spiritual care concerns: No Exam Narrative: GENERAL: nontoxic, in no acute distress, pleasant and cooperative HEAD: Normocephalic, atraumatic. EYES: PERRLA and EOMI. ENT: Mucous membranes tacky NECK: Supple. CHEST: no respiratory distress. HEART: Regular rate and rhythm ABDOMEN: Soft, nontender, nondistended EXTREMITIES: Normal range of motion. SKIN: Warm, dry, no rash. NEURO: Alert and oriented x3. PSYCH: Normal mood and affect. Course Vital Signs
[2023-09-14 12:55] LABS: Basophils Percent Auto 0.5 % (0.2-1.2); Eosinophils Percent Auto 0.3 % (0-4.4); Hematocrit 40.7 % (42.0-52.0); Hemoglobin 13.6 g/dL (14.0-18.0); Immature Granulocyte Absolute 0.02 K/mm3 (0.00-0.031); Immature Granulocyte Percent A 0.3 % (0-0.5); Lymphocytes Absolute Auto 0.77 K/mm3 (0.9-3.2); Lymphocytes Percent Auto 11.6 % (18.3-44.2); Mean Corpuscular HGB Conc 33.4 g/dl (32-36); Mean Corpuscular Hemoglobin 31.2 pg (26-34); Mean Corpuscular Volume 93.3 fl (80-100); Mean Platelet Volume 9.5 fl (7.4-10.4); Monocytes Absolute Auto 0.8 K/mm3 (0.1-0.6); Monocytes Percent Auto 12.3 % (2.6-8.5); Platelet Count Result 226 k/mm3 (150-375); Red Blood Count 4.36 M/mm3 (4.6-6.20); Red Cell Distribution Width 13.2 % (11.5-14.5); White Blood Count 6.7 K/mm3 (4.5-10.0)
[2023-09-14] MEDS: SODIUM CHLORIDE 0.9% IV 1,000 ML 999 ML IV CONT ×2 (12:59→15:15)
[2023-09-14] MEDS: oxyCODONE/ACETAMINOPHEN (*CRX) 5-325 MG TABLET 1 TABLET PO (13:00)
[2023-09-14 13:06] LABS: Alanine Aminotransferase 39 U/L (6-50); Albumin Level 4.4 g/dL (3.5-5.1); Alkaline Phosphatase 74 U/L (38-126); Anion Gap 5 mmol/L (8-16); Aspartate Amino Transferase 51 U/L (17-59); Bilirubin,Total 0.7 mg/dL (0.2-1.3); Blood Urea Nitrogen 7 mg/dL (9-20); Calcium 8.8 mg/dL (8.4-10.2); Carbon Dioxide 28 mmol/L (22-30); Chloride 103 mmol/L (98-107); Estimated CRCL calculation 79 ml/min; Estimated Glomerular Filt Rate > 60; Glucose 120 mg/dL (65-110); Lipase 113 U/L (23-300); Potassium 3.2 mmol/L (3.4-5.0); Sodium 136 mmol/L (137-145)
[2023-09-14 14:19] LABS: Appearance Urine Clear (Clear); Bacteria Urine None Seen /hpf; Bilirubin Urine Negative (Negative); Blood Urine Trace (Negative); Color Urine Dark Yellow (Yellow); Glucose Urine UA Negative (Negative); Ketones Urine Negative (Negative); Leukocyte Esterase Ur Negative LEU/UL (Negative); Nitrate Urine Negative (Negative); Non Pathogenic Casts 0-2; Protein Urine Trace mg/dL (Negative); Squamous Epithelial Cell Urine None seen /hpf (Few); WBC Urine 0-5 /hpf
[2023-09-14 14:24] LABS: Add Urine Microscopic? YES
[2023-09-14] MEDS: POTASSIUM CHLORIDE 20 MEQ ER TABLET 40 MEQ PO (15:10)
== END 2023-09-14 18:18 | disposition home or self-care (01) ==
PROVIDERS: Emergency Provider Emergency Medicine; PCP Hospitalist
DX: E86.0 Dehydration (principal); R19.7 Diarrhea, unspecified; R11.2 Nausea with vomiting, unspecified; E78.00 Pure hypercholesterolemia, unspecified; J44.9 Chronic obstructive pulmonary disease, unspecified; E66.9 Obesity, unspecified; Z68.28 Body mass index [BMI] 28.0-28.9, adult; F31.9 Bipolar disorder, unspecified; F41.9 Anxiety disorder, unspecified; F43.10 Post-traumatic stress disorder, unspecified; F17.210 Nicotine dependence, cigarettes, uncomplicated; Z87.442 Personal history of urinary calculi
CPT/HCPCS: 36415; 80053; 81001; 83690; 85025; 96360; 96361; 99283; A9270; J7030

== ENCOUNTER 2023-10-09 18:20 | Emergency (ER) | payer MEDICARE, SELFPAY ==
[2023-10-09 18:23] VITALS: BP 140/97; PULSE 104; RESP 16; TEMP 37; O2SAT 99
--- NOTE | 2023-10-09 21:15 | PC.NURSE ---
pt and family ambulatory to intake desk and states they are leaving. pt ambulated out of ED with steady gait.
== END 2023-10-10 00:39 | disposition left against medical advice (07) ==
LOC: ANHED 21:24
PROVIDERS: PCP Hospitalist
DX: R19.7 Diarrhea, unspecified (principal)
CPT/HCPCS: 99199

== ENCOUNTER 2024-02-11 04:11 | Emergency (ER) | payer MEDICARE, SELFPAY ==
[2024-02-11] VITALS (7 sets, daily range): BP systolic 149–156; BP diastolic 94–98; PULSE 76–87; RESP 13–21; TEMP 36.6; O2SAT 97–100
--- NOTE | ~2024-02-11 | XR_ITS ---
XR chest 1V portable DATE: 02/11/2024 04:36 INDICATION: REGINA TECHNIQUE: Portable upright AP views on 02/11/2024 and 0 432 and 0433 hours COMPARISON: 05/11/2021 CT chest 05/10/2021 2 view chest FINDINGS: Probable scarring in the right upper lobe. No pulmonary consolidation, pleural effusion, pu lmonary vascular congestion or pneumothorax is noted. Normal heart size. No hilar or mediastinal enlargement. IMPRESSION: Probable right upper lobe scarring; no active cardiopulmonary disease Reviewed, dictated and finalized at location [facility]. IMPRESSION: Probable right upper lobe scarring; no active cardiopulmonary disea se
--- NOTE | 2024-02-11 04:17 | ECG_ITS ---
SEE SCANNED COPY FOR CONFIRMED REPORT MTDD
--- NOTE | 2024-02-11 04:26 | ED.SOB ---
HPI - SOB/Dyspnea General Chief Complaint: Shortness of Breath/Dyspnea Stated Complaint: sob Time Seen by Provider: 02/11/24 04:18 History of Present Illness HPI Narrative: Patient with history of bipolar disorder, COPD, daily smoker, presents here with difficulty breathing tonight, he is worried that he may have collapsed lung or pneumonia. He tried quitting smoking today. Related Data Home Medications Medication Instructions Recorded Confirmed buspirone 5 mg tablet 15 mg PO TID 10/04/19 07/12/22 melatonin 3 mg tablet 20 mg PO HS 10/04/19 07/12/22 venlafaxine 75 mg tablet 150 mg PO QAM 10/04/19 07/12/22 quetiapine 400 mg tablet 400 mg PO HS 10/12/19 07/12/22 diazepam 10 mg tablet 10 mg PO Q12H PRN Anxiety 05/10/21 07/12/22 fenofibrate 160 mg tablet 145 mg PO DAILY 05/10/21 07/12/22 gabapentin 300 mg capsule 300 mg PO TID 05/10/21 07/12/22 hydrocodone 10 mg-acetaminophen 1 tablet PO Q8H PRN Pain 05/10/21 07/12/22 325 mg tablet albuterol 90 mcg/actuation aerosol 90 mcg inhalation DAILY 07/06/22 07/12/22 inhaler Allergies Allergy/AdvReac Type Severity Reaction Status Date / Time meperidine [From Demerol] Allergy Fainting Verified 02/11/24 04:18 propoxyphene Allergy Seizure Verified 02/11/24 04:18 STEROIDS AdvReac Irritable, Uncoded 11/27/22 13:34 SEVERE DEPRESSION Review of Systems Review of Systems: All systems reviewed & are unremarkable except as noted in HPI and below PMFSH Past Medical History Medical History Anxiety Bipolar disorder Chronic back pain Depression Hypercholesterolemia Kidney stones Obesity (BMI 30.0-34.9) Posttraumatic stress disorder Spinal stenosis Tobacco abuse Tobacco dependence Surgical History Surgical History History of myringotomy History of toe surgery Family History Family History Mother Family history of migraine headaches Hypertension Family history of osteoarthritis Family history of cardiovascular disease Father Family history of alcoholism Family history of diabetes mellitus in first degree relative Diabetes mellitus Grandparent Family history of lung cancer Other Family history of malignant neoplasm Family history of mental disorder Social History Social History Social History: Surrogate decision maker: Roxanne Morton, spouse. Code status: Full code. Smoking packs per day: 2 Smoking cigarettes per day: 40.0 Years smoked: 39 Smoking pack-years: 78.00 Smoking status: Current every day smoker Tobacco type: cigarettes Second hand tobacco smoke exposure: Yes Alcohol intake: never Alcohol use details: Rare alcohol use. Substance use: current Substance use type: marijuana Other substance usage details: uses daily Last use: 05/08/2021 Living arrangements: alone Occupation/Education: other Additional occupation/education comments: Disabled. Sexual Orientation (if Verbalized by the Patient): Straight or Heterosexual Spiritual care concerns: No Exam Narrative: EXAMINATION OF ORGAN SYSTEMS/BODY AREAS: Constitutional: Vital signs per nursing GENERAL:[No acute distress, non-toxic appearing.] HEAD: Normal with no signs of head trauma. EYES: EOMI, conjunctiva normal ENT: Hearing grossly intact LUNGS: Nonlabored breathing. Slight wheezing lung hsu HEART: [Regular rate and rhythm] ABD: [Soft], [nontender to palpation] EXT: Normal range of motion SKIN: [No rashes or lesions.] NEURO: [Alert and oriented x 3. No gross focal sensory or strength deficits.] PSYCH: Normal affect Course Vital Signs Vital signs: Vital Signs Temperature 97.8 F 02/11/24 04:10 Pulse Rate 81 02/11/24 04:10 Respiratory Rate 18 02/11/24 04:10 Blood Pressure 156/94 H
[2024-02-11] MEDS: predniSONE 20 MG TABLET 40 MG PO (04:40)
[2024-02-11] MEDS: IPRATROPIUM 0.5 MG/ALBUTEROL SULFATE 2.5 MG AMPUL.NEB 3 ML INHALATION (04:58)
== END 2024-02-11 05:45 | disposition home or self-care (01) ==
PROVIDERS: Emergency Provider Emergency Medicine; PCP Hospitalist
DX: J44.1 Chronic obstructive pulmonary disease with (acute) exacerbation (principal); E78.00 Pure hypercholesterolemia, unspecified; E66.9 Obesity, unspecified; Z68.27 Body mass index [BMI] 27.0-27.9, adult; F43.10 Post-traumatic stress disorder, unspecified; F17.210 Nicotine dependence, cigarettes, uncomplicated; F31.9 Bipolar disorder, unspecified; F41.9 Anxiety disorder, unspecified; Z87.442 Personal history of urinary calculi
CPT/HCPCS: 71045; 93005; 94640; 99284; J7512

== ENCOUNTER 2025-09-19 02:33 | Day surgery (SDC) | payer MEDICARE, SELFPAY ==
[2025-09-03 09:12] VITALS: BMI 21.4
--- OUTSIDE RECORDS SUMMARY | 2025-09-19 02:36 | XMS_ITS | Clinical Summary ---
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 05/07/2025 2:23 PM CDT Narrative [facility] - 05/08/2025 5:12 AM CDT FASTING:NO FASTING: NO Artem Dudley MD LAB BLOOD ORDERABLES Radha l Result [facility] [address] [place] [address] * Colonoscopy (07/19/2022) Anatomical Region Laterality Modality Other Dionisio Bang MD ENDOSCOPY PROCEDURES Radha l Result * Hepatitis C antibody (01/14/2021 11:40 AM CDT) Hep C Ab Nonreactive Nonreactive [facility] Comment: Interpretive Data Nonreactive: Antibodies to HCV not detected. Does NOT exclude the possibility of recent exposure to HCV. Equivocal: Equivocal for HCV antibodies. Supplemental molecular testing will be automatically performed to determine infection status in accordance with current CDC screening recommendations. Reactive: Positive for HCV antibodies. This may represent current or past HCV infection. Supplemental molecular testing will be automatically performed to determine current infection status in accordance with current CDC screening recommendations. Interpretive data was last revised on 2019. Blood specimen (specimen) 01/14/2021 11:40 AM CDT 01/14/2021 4:26 PM CDT Artem Dudley MD LAB MICROBIOLOGY - GENERA L ORDERABLES Final Result [facility] [id number] Department [place] [address] from Last 3 Months or Most Recently Relevant to Health Maintenance Insurance [facility] Member Subscriber Plan / Payer (Ef fective 2021-Present) Name:Arnaldo Morton Relation to Subscriber:Self Name:Praveen Arnaldo Darnell Payer ID:[id number] (NAIC) Type:[facility] Address: [address] [place] [id number] MEDICARE AETNA MEDICARE GOLD AETNA MEDICARE GOLD AETNA MEDICARE GOLD Advance Directives For more information, please contact: [phone] * Full Code (Latest Code Status on File) Date Activated Date Inactivated Comments 10/22/2023 9:21 PM 10/23/2023 7:07 PM Healthcare Agents on File Name Relationship Healthcare Agent Relationshi p Communication Roxanne Praveen Spouse Health Care Agent Care Teams Automatic Log Cut Off Sawyer Relationship Specialty Start Date End Date Artem Dudley MD [address] [place] [address] PCP - General Family Medicine 01/14/21
--- OUTSIDE RECORDS SUMMARY | 2025-09-19 02:36 | XMS_ITS | Clinical Summary ---
Author Organization [facility] Address [address] [facility] [place] [address] Phone Care Team Providers Care Puller Machine Name Role Phone Unavailable Primary Care Provider Unavailabl e Allergies Active Allergy Reactions Criticality Noted Date Comments Meperidine Other (see Comments) 10/27/2016 Seizures Medications diclofenac (CATAFLAM) 50 MG Tablet 10/03/2016 Active diazePAM (VALIUM) 10 MG Tablet 10/03/2016 Active fenofibrate 160 MG Tablet 10/03/2016 Active chlordiazePOXIDE-a mitriptyline (LIMBITROL) 5-12.5 MG Tablet 10/07/2016 Active venlafaxine (EFFEXOR) 37.5 MG Tablet 10/03/2016 Active Active Problems Problem Noted Date Diagnosed Date Muscle weakness 10/27/2016 Muscle spasm 10/27/2016 Osteoarthritis of lumbar spine 10/27/2016 Social History Tobacco Use Types Packs/Day Years Used Date Smoking Tobacco: Every Day Cigarettes Tobacco Cessation:Ready to Q uit: No; Counseling Given: Yes Alcohol Use Standard Drinks/Week Comments Yes 0 (1 standard drink = 0.6 oz pur e alcohol) Sex and Gender Information Value Date Recorded Sex Assigned at Not on file Legal Sex Male 11:39 PM CDT Gender Identity Not on file Sexual Orientation Not on file Last Filed Vital Signs Vital Sign Reading Time Taken Comments Blood Pressure 140/72 12/29/2016 10:29 AM CDT Pulse 85 12/29/2016 10:29 AM CDT Temperature 36.9 C (98.5 F) 12/29/2016 10:29 AM CDT Respiratory Rate 18 12/29/2016 10:29 AM CDT Oxygen Saturation 98% 12/29/2016 10:29 AM CDT Inhaled Oxygen Concentration - - Weight 98.4 kg (217 lb) 12/29/2016 10:29 AM CDT Height 177.8 cm (5' 10) 12/29/2016 10:29 AM CDT Body Mass Index 31.14 12/29/2016 10:29 AM CDT Plan of Treatment Health Maintenance Due Date Last Done Comments Hepatitis C Virus (HCV) Screening 1965 TdaP Immunization 1965 Cologuard 2010 Colonoscopy 2010 Colorectal Cancer Screening 2010 Immunochemical Fecal Occult Blood 2010 Pneumococcal Immunization (5 0+ years) (1 of 1 - PCV) 2015 Zoster Immunization (1 of 2) 2015 Influenza Immunization (#1) 2025 SARS-COV-2 Immunization ( - season) 2025 Respiratory Syncytial Virus (RSV) Immunization (Adult) (1 - 1-dose 75+ series) 01/03/2040 Hepatitis B Immunization Aged Out No longer eligible based on patient's age to complete this topic Human Papillomavirus (HPV) Immunization Aged Out No longer eligible b ased on patient's age to complete this topic Meningococcal Immunization (ACWY) Aged Out No longer eligible based on patient's age to complete this topic Rotavirus Immunization Aged Out No lo nger eligible based on patient's age to complete this topic Insurance MEDICARE [facility]
[2025-09-19 10:37] VITALS: BP 117/67; PULSE 110; RESP 20; TEMP 36.1; O2SAT 98; BMI 20.8
[2025-09-19] MEDS: LACTATED RINGERS 1,000 ML 150 ML IV CONT (10:39)
--- NOTE | 2025-09-19 10:42 | PM.HPGS ---
History of Present Illness History of Present Illness Consent: Risks, benefits, and alternatives have been discussed and questions answered. Patient agrees to proceed with procedure. Chief complaint: Personal history of colon polyps, unspecified Narrative: Arnaldo Morton is a 60 year old male with colon polyp in 2021 Review of Systems Review of Systems: All systems reviewed & are unremarkable except as noted in HPI and below PMFSH Past Medical History Medical History (Updated 09/19/25 @ 10:42 by Alonzo Jain MD) Adenomatous colon polyp Tobacco abuse Obesity (BMI 30.0-34.9) Tobacco dependence Posttraumatic stress disorder Kidney stones Anxiety Spinal stenosis Bipolar disorder Depression Chronic back pain Hypercholesterolemia Surgical History Surgical History History of toe surgery History of myringotomy Family History Family History Mother Family history of migraine headaches Hypertension Family history of osteoarthritis Family history of cardiovascular disease Father Family history of alcoholism Family history of diabetes mellitus in first degree relative Diabetes mellitus Grandparent Family history of lung cancer Other Family history of malignant neoplasm Family history of mental disorder Social History Social History Social History: Surrogate decision maker: Roxanne Morton, spouse. Code status: Full code. Smoking packs per day: 2 Smoking cigarettes per day: 40.0 Years smoked: 39 Smoking pack-years: 78.00 Smoking status: Current every day smoker Tobacco type: cigarettes Second hand tobacco smoke exposure: Yes Alcohol intake: never Alcohol use details: Rare alcohol use. Substance use: current Substance use type: marijuana Other substance usage details: uses daily Last use: daily Living arrangements: alone Occupation/Education: other Additional occupation/education comments: Disabled. Sexual Orientation (if Verbalized by the Patient): Straight or Heterosexual Spiritual care concerns: No Meds Home Medications and Allergies Home Medications ?Medication ?Instructions ?Recorded ?Confirmed ?Type diazepam 10 mg tablet 10 mg PO Q12H PRN Anxiety 05/10/21 09/19/25 History fenofibrate 160 mg tablet 145 mg PO DAILY 05/10/21 09/19/25 History hydrocodone 10 mg-acetaminophen 1 tablet PO Q8H PRN Pain 05/10/21 09/19/25 History 325 mg tablet albuterol 90 mcg/actuation aerosol 90 mcg inhalation DAILY 07/06/22 09/19/25 History inhaler dicyclomine 10 mg capsule 10 mg PO TID PRN abdominal pain 11/27/22 09/03/25 Rx #10 caps hyoscyamine sulfate 0.125 mg tablet See Rx Instructions .Route 12/23/22 09/19/25 Rx .COMPLEX #120 tabs albuterol sulfate 90 mcg/actuation 2 puff inhalation QID PRN 02/11/24 09/03/25 Rx aerosol inhaler shortness of breath or wheezing #8.5 grams Allergies Allergy/AdvReac Type Severity Reaction Status Date / Time meperidine (From Demerol) Allergy Fainting Verified 09/19/25 10:35 propoxyphene Allergy Seizure Verified 09/19/25 10:35 STEROIDS AdvReac Irritable, Uncoded 11/27/22 13:34 SEVERE DEPRESSION Vital Signs Vital Signs - 24 hr 09/19/25 10:37 Temperature 97 F L Pulse Rate 110 H Respiratory Rate 20 Blood Pressure 117/67 Pulse Oximetry 98 Oxygen Delivery Room Air Exam Const: General: comfortable and no acute distress HENMT: Face/Nose/Sinus: Normal nares present Eyes: General: appearance normal, both eyes and all related structures Resp: Auscultation: clear to auscultation bilaterally Cardio: Rate: regular rate Rhythm: regular rhythm GI: Inspection: non-distended GI Palp: Yes Soft to palpation Skin: General skin exam: normal color Assessment and Plan Assessment and plan (1) Adenomatous colon polyp: Code(s): D12.6 - Benign neoplasm of colon, unspecified Status: Acute Assessment and Plan: colonoscopy
--- NOTE | 2025-09-19 10:45 | WPDANESEPPF ---
Anes - Initial Pre Proc Eval Procedure: Operation Date: 09/19/25 11:30 Proposed Procedures p Screening Colonoscopy - Alonzo Jain MD Date/Time: 09/19/25 10:45 Surgeon: Alonzo Jain MD Pre Op Diagnosis: Personal history of colon polyps, unspecified Patient Data Age: 60 Gender: M Height: 1.75 m Weight: 64 kg Last Vital Signs Temp 97 F L 09/19/25 10:37 Pulse 110 H 09/19/25 10:37 Resp 20 09/19/25 10:37 BP 117/67 09/19/25 10:37 Pulse Ox 98 09/19/25 10:37 O2 Del Method Room Air 09/19/25 10:37 Allergies Allergy/AdvReac Type Severity Reaction Status Date / Time meperidine (From Demerol) Allergy Fainting Verified 09/19/25 10:35 propoxyphene Allergy Seizure Verified 09/19/25 10:35 STEROIDS AdvReac Irritable, Uncoded 11/27/22 13:34 SEVERE DEPRESSION Home Medications ?Medication ?Instructions ?Recorded ?Confirmed ?Type diazepam 10 mg tablet 10 mg PO Q12H PRN Anxiety 05/10/21 09/19/25 History fenofibrate 160 mg tablet 145 mg PO DAILY 05/10/21 09/19/25 History hydrocodone 10 mg-acetaminophen 1 tablet PO Q8H PRN Pain 05/10/21 09/19/25 History 325 mg tablet albuterol 90 mcg/actuation aerosol 90 mcg inhalation DAILY 07/06/22 09/19/25 History inhaler dicyclomine 10 mg capsule 10 mg PO TID PRN abdominal pain 11/27/22 09/03/25 Rx #10 caps hyoscyamine sulfate 0.125 mg tablet See Rx Instructions .Route 12/23/22 09/19/25 Rx .COMPLEX #120 tabs albuterol sulfate 90 mcg/actuation 2 puff inhalation QID PRN 02/11/24 09/03/25 Rx aerosol inhaler shortness of breath or wheezing #8.5 grams Patient hx anesthesia problems: none Family hx anesthesia problems: none Results Review: All pre-operative results and documents have been reviewed as part of the pre-operative evaluation. [facility] Past Medical History Medical History Adenomatous colon polyp Tobacco abuse Obesity (BMI 30.0-34.9) Tobacco dependence Posttraumatic stress disorder Kidney stones Anxiety Spinal stenosis Bipolar disorder Depression Chronic back pain Hypercholesterolemia Surgical History Surgical History History of toe surgery History of myringotomy Family History Family History Mother Family history of migraine headaches Hypertension Family history of osteoarthritis Family history of cardiovascular disease Father Family history of alcoholism Family history of diabetes mellitus in first degree relative Diabetes mellitus Grandparent Family history of lung cancer Other Family history of malignant neoplasm Family history of mental disorder Social History Social History Social History: Surrogate decision maker: Roxanne Morton, spouse. Code status: Full code. Smoking packs per day: 2 Smoking cigarettes per day: 40.0 Years smoked: 39 Smoking pack-years: 78.00 Smoking status: Current every day smoker Tobacco type: cigarettes Second hand tobacco smoke exposure: Yes Alcohol intake: never Alcohol use details: Rare alcohol use. Substance use: current Substance use type: marijuana Other substance usage details: uses daily Last use: daily Living arrangements: alone Occupation/Education: other Additional occupation/education comments: Disabled. Sexual Orientation (if Verbalized by the Patient): Straight or Heterosexual Spiritual care concerns: No Anes - Eval Final PreProcedure Day of Procedure 09/19/25 10:45 Patient weight: normal Lungs: normal air movement Airway: Mallampati scale class II and special considerations (Upper edentulous. ) Neurological: alert and oriented Last oral intake: >/= 8 hours ASA classification: III Emergent: no Anesthetic plan: proceed Anesthesia type and monitoring: general GIVS and standard monitoring Results Review: All pre-operative results and documents have been reviewed as part of the pre-operative evaluation. Long time smoker, bipolar disorder, DM, pt w wt loss this year. Active without cp or sob. Informed Consent: The patient's anesthetic plan and its attendant risks and benefits were discussed with the patient/family/POA. Questions were solicited and answers provided to the satisfaction of the patient/family/POA.
--- NOTE | 2025-09-19 11:07 | S_PTH ---
PATIENT: Arnaldo Morton LOC: [facility]#:[id number] AGE/SX: 60/M ROOM: RE09/19/[address]: Alonzo Jain MD : 1965 BED: DIS: 09/19/2025 SPEC #: [id number] RECD: 09/19/25 11:55 STATUS: DELMI REThad #: [id number] GABY: 09/19/25 11:[address]: Alonzo Jain DEPT: [facility] Surgical RECD BY: Radha Griffin ENTERED: 09/19/25 11:56 SP TYPE: Surgical OTHR DR: Artem DudleyMD Tissues: A - Colon Polypectomy B - Colon Polypectomy C - Rectal Polyp Procedures: Hematoxylin and Eosin Stain Gross and Microscopic Level 4
[2025-09-19 11:11] VITALS: BP 88/47; PULSE 76; RESP 22; O2SAT 95
[2025-09-19 11:21] VITALS: BP 93/61; PULSE 81; RESP 18; O2SAT 99
[2025-09-19 11:31] VITALS: BP 92/65; PULSE 84; RESP 18; O2SAT 100
[2025-09-19 11:41] VITALS: BP 109/61; PULSE 72; RESP 18; O2SAT 100
== END 2025-09-19 11:57 | disposition home or self-care (01) ==
PROVIDERS: PCP Hospitalist; Referring Provider Internal Medicine Gastroenterology; Visit Provider Internal Medicine Gastroenterology
PROC: 0DJD8ZZ Inspection of Lower Intestinal Tract, Via Natural or Artificial Opening Endoscopic (ICD-10-PCS; CPT 45378; principal; 2025-09-19 11:30)
DX: Z12.11 Encounter for screening for malignant neoplasm of colon (principal); D12.3 Benign neoplasm of transverse colon; D12.5 Benign neoplasm of sigmoid colon; K62.1 Rectal polyp; K57.30 Diverticulosis of large intestine without perforation or abscess without bleeding; E11.9 Type 2 diabetes mellitus without complications; E78.00 Pure hypercholesterolemia, unspecified; F43.10 Post-traumatic stress disorder, unspecified; F41.9 Anxiety disorder, unspecified; F32.A Depression, unspecified; G89.29 Other chronic pain; M54.9 Dorsalgia, unspecified; M48.00 Spinal stenosis, site unspecified; F17.210 Nicotine dependence, cigarettes, uncomplicated; F12.90 Cannabis use, unspecified, uncomplicated; Z79.891 Long term (current) use of opiate analgesic; Z79.51 Long term (current) use of inhaled steroids; Z98.890 Other specified postprocedural states; Z87.442 Personal history of urinary calculi; Z80.1 Family history of malignant neoplasm of trachea, bronchus and lung; Z82.49 Family history of ischemic heart disease and other diseases of the circulatory system
CPT/HCPCS: 45385; 88305; J2003; J2704; J7120